=== PATIENT | male | born 1950 | race Caucasian/White ===

== ENCOUNTER → 2018-10-20 | Outpatient (CLI) | payer OTHER ==
[~2018-10-20] VITALS: Ht 180.3 cm; Wt 85.3 kg
[~2018-10-20] MED LIST: CATHETER FLUSH 10 ML SYR IV PRN; ONDANSETRON 4 MG/2 ML (SDV) Z0FRAN IVP ONE; ONDANSETRON 4 MG/2 ML (SDV) Z0FRAN ONE; REGADENOSON 0.4 MG/5 ML SYR (LEXISCAN) IV ONE
--- NOTE | 2018-10-20 22:21 | STRESS TEST ---
DATE OF SERVICE: 10/20/2018 RESTING AND POST REGADENOSON TECHNETIUM-99M TETROFOSMIN SPECT CT IMAGING ORDERING PHYSICIAN: Dr. Mitchell. CLINICAL DIAGNOSES: Chest discomfort, shortness of breath. Baseline images were carried out after injection of 10.66 mCi of technetium-99m Tetrofosmin. This was followed by 0.4 mg Regadenoson and 29 mCi of technetium-99m Tetrofosmin for stress imaging. The electrocardiogram showed sinus rhythm at the baseline. The electrocardiogram did not change significantly with the Regadenoson infusion. Review of images at rest and following stress does not indicate any significant perfusion defects consistent with significant myocardial ischemia or infarction. Gated images show normal global left ventricular systolic function and no regional wall motion. Left ventricular ejection fraction is calculated to be 66%. Left ventricular end diastolic volume is 35 mL. TID is absent (0.99). CONCLUSIONS: 1. No evidence of any significant myocardial ischemia or infarction on this study. 2. Normal regional wall motion. 3. Normal global left ventricular systolic function with a calculated ejection fraction of 66%. Job ID: [id number] DocumentID: [id number] Dictated Date: 10/20/2018 17:31:45 Business Assistant Date: 10/20/2018 21:49:43 Dictated By: HUMBERTO MITCHELL MD, MA, FACP, FACC,
== END ==
LOC: CARD 11:17
PROVIDERS: ATTEND Internal Medicine Cardiovascular Disease
DX: R07.89 Other chest pain (principal); R06.02 Shortness of breath; I10 Essential (primary) hypertension
CPT/HCPCS: 78452; 93017; 93306

== ENCOUNTER → 2019-04-06 | Outpatient (CLI) | payer OTHER ==
[2019-04-06 16:15] LABS: PROTHROMBIN TIME PATIENT 13.9 SEC (12.2-14.7)
== END ==
LOC: LAB 15:40
PROVIDERS: ATTEND Nurse Practitioner Family
DX: R06.02 Shortness of breath (principal); R91.8 Other nonspecific abnormal finding of lung field; R06.89 Other abnormalities of breathing; R05 Cough; R59.1 Generalized enlarged lymph nodes
CPT/HCPCS: 36415; 85610; 85730

== ENCOUNTER 2019-04-10 05:38 | Outpatient (CLI) | payer OTHER ==
[~2019-04-10] VITALS: Ht 180.3 cm; Wt 82.8 kg
[2019-04-10] MEDS ORDERED: NAPR500T8 PO (12:42)
[2019-04-10] MEDS ORDERED: AMLO10TA7 PO (12:42)
[2019-04-10] MEDS ORDERED: TRAM50TA2 PO (12:42)
[2019-04-10] MEDS ORDERED: LOSA100T57 PO (12:42)
[2019-04-10] MEDS ORDERED: TAMS0.4C98 PO (12:42)
[2019-04-10] MEDS ORDERED: RANI-515 PO (12:42)
[2019-04-10] MEDS ORDERED: LORA10TA7 PO (12:42)
== END 2019-04-10 12:43 | disposition home or self-care (01) ==
LOC: PREOP 05:38
PROVIDERS: ATTEND Internal Medicine Critical Care Medicine
DX: Z01.818 Encounter for other preprocedural examination (principal)

== ENCOUNTER 2019-04-15 06:50 | Day surgery (SDC) | payer OTHER ==
[2019-04-15] VITALS (8 sets, daily range): BP systolic 122–175; BP diastolic 69–114
[~2019-04-15 06:50] MED LIST changes: +AMLO10TA7 PO; -CATHETER FLUSH 10 ML SYR IV PRN; +LORA10TA7 PO; +LOSA100T57 PO; +NAPR500T8 PO; -ONDANSETRON 4 MG/2 ML (SDV) Z0FRAN IVP ONE; -ONDANSETRON 4 MG/2 ML (SDV) Z0FRAN ONE; +RANI-515 PO; -REGADENOSON 0.4 MG/5 ML SYR (LEXISCAN) IV ONE; +TAMS0.4C98 PO; +TRAM50TA2 PO
[2019-04-15] MEDS ORDERED: LIDOCAINE PF 2% 5 ML (XYLOCAINE) VIAL INJ ONE (06:51)
[2019-04-15] MEDS ORDERED: LIDOCAINE PF 1% 2 ML AMP IJ ONE (06:51)
[2019-04-15] MEDS ORDERED: LIDOCAINE PF 2% 5 ML (XYLOCAINE) VIAL ONE (06:56)
[2019-04-15] MEDS ORDERED: DEXAMETHASONE 10 MG/ML (DECADRON) 1 ML VIAL ONE (06:56)
[2019-04-15] MEDS ORDERED: fentaNYL INJECTION 100 MCG/2 ML AMP ONE (06:56)
[2019-04-15] MEDS ORDERED: SEVOFLURANE (ULTANE) 15 ML INHAL SOLN ONE (06:56)
[2019-04-15] MEDS ORDERED: ONDANSETRON 4 MG/2 ML (SDV) Z0FRAN ONE (06:56)
[2019-04-15] MEDS ORDERED: proPOfol 200 MG/20 ML (DIPRIVAN) VIAL IV ONE (06:56)
[2019-04-15] MEDS ORDERED: MIDAZOLAM 2 MG/2 ML (VERSED) VIAL ONE (06:57)
[2019-04-15] MEDS ORDERED: LACTATED RINGERS 1,000 ML IV ONE ×2 (06:57→08:22)
[2019-04-15] MEDS ORDERED: LACTATED RINGERS 1,000 ML IV PRN ×2 (06:58→07:00)
[2019-04-15] MEDS ORDERED: ROCURONIUM 10 MG/ML 5 ML SYRINGE IV ONE (07:04)
[2019-04-15] MEDS ORDERED: PHENYLEPHRINE 100 MCG/ML 10 ML (ANESTHESIA) SYR ONE (08:01)
[2019-04-15] MEDS ORDERED: GLYCOPYRROLATE 0.2 MG/ML (ROBINUL) 2 ML VIAL ONE (08:22)
[2019-04-15] MEDS ORDERED: NEOSTIGMINE 3 MG/3 ML VIAL ONE (08:22)
[2019-04-15] MEDS ORDERED: MEPERIDINE (DEMEROL) INJ 50 MG/ML IVP ONE (08:45)
[2019-04-15] MEDS ORDERED: morphine INJ 10 MG/ML 1ML (SYR OR VIAL) IVP ONE (08:45)
[2019-04-15] MEDS ORDERED: HYDROmorphone 2 MG/ML VIAL (DILAUDID) IV ONE (08:45)
[2019-04-15] MEDS ORDERED: ONDANSETRON 4 MG/2 ML (SDV) Z0FRAN IVP PRN (08:45)
--- NOTE | 2019-04-15 09:03 | Diagnostic Imaging Report ---
INDICATION: Post-bronchoscopy evaluation. Portable supine image of the chest is obtained. There is no previous study available at this time for comparison. FINDINGS: Overall heart size is at upper limits of normal. There is increased density in the right hilum which may be due to infiltrate or mass. There is blunting of right costophrenic sulcus. Endotracheal tube is in place with tip reaching the lower trachea. No pneumothorax is identified. IMPRESSION: Right hilar infiltrate and/or mass. Correlation with older studies or CT imaging would be useful. There is no evidence of pneumothorax or other acute complication from bronchoscopy. Dictated by: Dictated on workstation # [id number]
--- NOTE | 2019-04-15 09:15 | Anesthesia-General Post-Op ---
General Patient Condition Mental Status/LOC: Same as Preop Cardiovascular: Satisfactory Nausea/Vomiting: Absent Respiratory: Satisfactory Pain: Controlled Complications: Absent Post Op Complications Complications None Follow Up Care/Instructions Patient Instructions None needed. Anesthesia/Patient Condition Patient Condition Patient is doing well, no complaints, stable vital signs, no apparent adverse anesthesia problems. No complications reported per nursing. ROGER LOVE CRNA Apr 15, 2019 09:15 POS
--- NOTE | 2019-04-15 10:40 | Anesthesia-General Post-Op ---
General Patient Condition Mental Status/LOC: Same as Preop Cardiovascular: Satisfactory Nausea/Vomiting: Absent Respiratory: Satisfactory Pain: Controlled Complications: Absent Post Op Complications Complications None Follow Up Care/Instructions Patient Instructions None needed. Anesthesia/Patient Condition Patient Condition Patient is doing well, no complaints, stable vital signs, no apparent adverse anesthesia problems. No complications reported per nursing. YOSSI JOEL CRNA Apr 15, 2019 10:40 POS
--- NOTE | 2019-04-15 11:39 | Progress Note-Pre Operative ---
Pre-Operative Progress Note H&P Reviewed The H&P was reviewed, patient examined and no changes noted. Date Seen by Provider: Apr 15, 2019 Time Seen by Provider: 07:00 Date H&P Reviewed: Apr 15, 2019 Time H&P Reviewed: 07:00 Pre-Operative Diagnosis: lung mass JOYCE FREITAS DO Apr 15, 2019 11:39 POS
--- NOTE | 2019-04-15 11:45 | Pulmonary Procedures ---
Pulmonary Procedures Date of Procedure Date of Service: Apr 15, 2019 Bronch Bronchoscopy with EBUS with bx of station 7 and 10R lymph nodes. Bilateral wash was also obtained Preop DX: mediastinal lymphadenopathy with lung mass PostOP DX: same Complications: None Pt was sedated per anesthesia. Bronchoscopy was advanced through the ET tube and an anatomical undertaken down to the segmental bronchi bilaterally. No endobronchial lesions noted. EBUS was then advanced through ET tube and the mediastinum was US. Station 7 and 10R lymph nodes were sampled via needle bx un park US guidance. Pt tolerated procedure well. No complications noted. JOYCE FREITAS DO Apr 15, 2019 11:45 POS
== END 2019-04-15 10:35 | disposition home or self-care (01) ==
LOC: ENDO 06:50
PROVIDERS: ATTEND Internal Medicine Critical Care Medicine
DX: R59.1 Generalized enlarged lymph nodes (principal); R91.8 Other nonspecific abnormal finding of lung field; I10 Essential (primary) hypertension; M19.90 Unspecified osteoarthritis, unspecified site; J93.9 Pneumothorax, unspecified; K21.9 Gastro-esophageal reflux disease without esophagitis; Z88.0 Allergy status to penicillin; Z79.899 Other long term (current) drug therapy; Z80.9 Family history of malignant neoplasm, unspecified; Z83.3 Family history of diabetes mellitus; Z82.49 Family history of ischemic heart disease and other diseases of the circulatory system; Z90.49 Acquired absence of other specified parts of digestive tract; Z86.73 Personal history of transient ischemic attack (TIA), and cerebral infarction without residual deficits
CPT/HCPCS: 71045; 87015; 87070; 87101; 87116; 87205; 87206; 94640

== ENCOUNTER → 2019-04-29 | Outpatient (CLI) | payer OTHER ==
[~2019-04-29] MED LIST changes: +RT-ALBUTEROL SULF 2.5 MG/3 ML PRE-MIX VIAL INH ONE
== END ==
LOC: RAD 07:54
PROVIDERS: ATTEND Nurse Practitioner Family
DX: R06.02 Shortness of breath (principal); R91.8 Other nonspecific abnormal finding of lung field; R06.89 Other abnormalities of breathing; R05 Cough; R59.1 Generalized enlarged lymph nodes
CPT/HCPCS: 94060; 94726; 94729

== ENCOUNTER → 2019-05-05 | Outpatient (CLI) | payer OTHER ==
[~2019-05-05] MED LIST changes: -RANI-515 PO; +RANI-609 PO; -RT-ALBUTEROL SULF 2.5 MG/3 ML PRE-MIX VIAL INH ONE; -TAMS0.4C98 PO; +TMSL.4C PO; -TRAM50TA2 PO; +TRM50T PO
--- NOTE | 2019-05-05 14:12 | Diagnostic Imaging Report ---
INDICATION: Lymphadenopathy and cough. COMPARISON: No prior PET studies available for comparison. Comparison is made with recent chest radiograph from 04/15/2019. TECHNIQUE: Serum blood glucose level at the time of injection was 98 mg/dL. Patient was administered 13.5 mCi F-18 FDG intravenously in the left antecubital location and PET imaging was performed from the top of the skull to mid thighs. Noncontrast CT was also performed for attenuation correction and anatomic correlation. FINDINGS: No suspicious hypermetabolism within the brain is identified. Mild uptake within left supraclavicular lymph nodes is noted. Imaging through the chest does show bulky hypermetabolic bilateral axillary lymph nodes. SUV max is in the 4-5 range. There are some enlarged lymph nodes in the mediastinum as well however these do not demonstrate FDG avidity. No pulmonary parenchymal hypermetabolism is identified. Abdomen and pelvis demonstrates physiologic activity within the gastrointestinal and genitourinary tracts. There are some hypermetabolic lymph nodes in the central retroperitoneum as well as bilateral iliac and obturator regions. SUV max ranges from 3.5-4.5. There is hypermetabolic bilateral inguinal lymph nodes as well. IMPRESSION: Hypermetabolic lymphadenopathy bilateral axillary regions as well as central retroperitoneal, iliac, obturator and bilateral inguinal regions. There is mildly hypermetabolic lymph nodes in the cervical spine and supraclavicular regions as well. Features are suggestive of lymphoma. Dictated by: Dictated on workstation # [id number]
== END ==
LOC: RAD 11:00
PROVIDERS: ATTEND Nurse Practitioner Family
DX: J45.909 Unspecified asthma, uncomplicated (principal); R91.8 Other nonspecific abnormal finding of lung field; R59.1 Generalized enlarged lymph nodes

== ENCOUNTER → 2019-05-11 | Outpatient (CLI) | payer OTHER ==
[~2019-05-11] VITALS: Ht 180.3 cm; Wt 82.8 kg
[~2019-05-11] MED LIST changes: +LIDOCAINE 1% INJ 20 ML 20 ML VIAL INJ ONE
--- NOTE | 2019-05-11 10:50 | Diagnostic Imaging Report ---
INDICATION: Lymphadenopathy. TECHNIQUE AND FINDINGS: After explaining the risks, benefits, and alternatives of the procedure to the patient, written consent was obtained. The patient was placed on the table in the supine position. The patient's left axilla was prepped and draped utilizing maximal sterile barrier technique. Local anesthesia was obtained with 2% lidocaine. An 18-gauge Temno introducer needle was advanced into the largest node in the left axilla. Approximately six core biopsy specimens were obtained. Following the procedure, the needle was removed and adequate hemostasis was obtained. The patient tolerated the procedure well and left the Department in stable condition. IMPRESSION: Successful ultrasound-guided biopsy of a left axillary lymph node as described. Dictated by: Dictated on workstation # [id number]
== END ==
LOC: RAD 09:30
PROVIDERS: ATTEND Nurse Practitioner Family
DX: R59.1 Generalized enlarged lymph nodes (principal); R06.89 Other abnormalities of breathing; R91.8 Other nonspecific abnormal finding of lung field
CPT/HCPCS: 88184; 88185; 88305; 88341; 88342; 88360

== ENCOUNTER 2019-07-09 05:29 | Outpatient (CLI) | payer OTHER ==
[~2019-07-09] VITALS: Ht 70 cm; Wt 84.0 kg
[~2019-07-09 05:29] MED LIST changes: -LIDOCAINE 1% INJ 20 ML 20 ML VIAL INJ ONE
[2019-07-09] MEDS ORDERED: OXYC-471 PO (10:28)
[2019-07-09] MEDS ORDERED: FERR-84 PO (10:28)
[2019-07-09] MEDS ORDERED: ALLO300T2 PO (10:28)
[2019-07-09] MEDS ORDERED: DOCU100C37 PO (10:28)
[2019-07-09] MEDS ORDERED: CYCL10TA9 PO (10:28)
[2019-07-09] MEDS ORDERED: SUMA50TA2 PO (10:28)
[2019-07-09] MEDS ORDERED: RT-ALBUINH IH (10:28)
== END 2019-07-09 10:36 | disposition home or self-care (01) ==
LOC: PREOP 05:29
PROVIDERS: ATTEND Surgery
DX: Z01.818 Encounter for other preprocedural examination (principal)

== ENCOUNTER 2019-07-15 06:53 | Observation (INO) | payer MEDICARE, OTHER ==
[2019-07-15] VITALS (22 sets, daily range): BP systolic 83–165; BP diastolic 45–135
[~2019-07-15] VITALS: Ht 177 cm; Wt 86.6 kg
[~2019-07-15 06:53] MED LIST changes: +ALLO300T2 PO; +CYCL10TA9 PO; +DOCU100C37 PO; +FERR-84 PO; +OXYC-471 PO; +RT-ALBUINH IH; +SUMA50TA2 PO
[2019-07-15] MEDS ORDERED: BUP/EPI 0.5% 1:200,000 (SENSORCAINE) 30 ML VIAL ONE (07:19)
[2019-07-15] MEDS ORDERED: 0.9% SODIUM CHLORIDE PF INJ 20 ML VIAL ONE (07:20)
[2019-07-15] MEDS ORDERED: HEParin (CENTRAL IV FLUSH) 500 UNIT/5 ML SYR ONE (07:20)
[2019-07-15] MEDS ORDERED: MIDAZOLAM 2 MG/2 ML (VERSED) VIAL ONE ×2 (07:25→08:35)
[2019-07-15] MEDS ORDERED: LACTATED RINGERS 1,000 ML IV PRN (07:25)
[2019-07-15] MEDS ORDERED: CLINDAMYCIN 600 MG/50 ML IVPB 50 ML IV ONE (07:30)
[2019-07-15] MEDS ORDERED: CATHETER FLUSH 10 ML SYR IV PRN (07:45)
--- NOTE | 2019-07-15 08:13 | Progress Note-Pre Operative ---
Pre-Operative Progress Note H&P Reviewed The H&P was reviewed, patient examined and no changes noted. Time Seen by Provider: 08:09 Date H&P Reviewed: Jul 15, 2019 Time H&P Reviewed: 08:10 Pre-Operative Diagnosis: Venous Insufficiency DYLAN ANDERSON DO Jul 15, 2019 08:13
[2019-07-15] MEDS ORDERED: fentaNYL INJECTION 100 MCG/2 ML AMP ONE (08:49)
--- NOTE | 2019-07-15 08:49 | Progress Note-Post Operative ---
Post-Operative Progess Note Surgeon (s)/Furniture Servicer (s) Surgeon DYLAN ANDERSON DO Furniture Servicer: SHANDA Abad Pre-Operative Diagnosis Venous Insufficiency Post-Operative Diagnosis Venous insuffiency Lymphoma Procedure & Operative Findings Date of Procedure 07/15/19 Procedure Performed/Findings Jasiel-cath placement R SC vein, R ACW Anesthesia Type IV sedation by MATERIAL CONTROL SUPERVISOR Estimated Blood Loss Estimated blood loss (mL): scant Specimens/Packing Specimens Removed none DYLAN ANDERSON DO Jul 15, 2019 08:49
--- NOTE | 2019-07-15 08:50 | Discharge Inst-Surgical ---
Discharge Inst-Surgical Depart Medication/Instructions New, Converted or Re-Newed RX: Other (pt has home pain meds) Activity Activity as Tolerated: Yes Activity Instructions: Avoid Stress to Incision Driving Instructions: You May Drive Diet Discharge Diet: No Restrictions Diet After 24 Hours: Clear Liquid if Nauseous If Any Problems/Questions/Issu: Contact Your Physician, Go to Emergency Room Skin/Wound Care Infection Signs and Symptoms: Increased Redness, Foul Odor of Wound, Increased Drainage, Skin Itchy or Has a Rash, Increased Swelling, Temperature Above 101 F Bathing Instructions: Shower Stitches/[place]/Dermabond Dis: Dermabond Ice Pack: Ice On and Off Site DYLAN ANDERSON DO Jul 15, 2019 08:50
[2019-07-15] MEDS ORDERED: PHENYLEPHRINE 100 MCG/ML 10 ML (ANESTHESIA) SYR ONE (09:06)
[2019-07-15] MEDS ORDERED: PROPOFOL INJECTION 50 ML IV ONE (09:07)
[2019-07-15] MEDS ORDERED: GLYCOPYRROLATE 0.2 MG/ML (ROBINUL) 2 ML VIAL ONE (09:08)
[2019-07-15] MEDS ORDERED: FLUMAZENIL (ROMAZICON) 0.1 MG/ML 5 ML VIAL ONE (09:08)
[2019-07-15] MEDS ORDERED: NS IV 1000 ML 1,000 ML ONE (09:12)
--- NOTE | 2019-07-15 09:36 | Diagnostic Imaging Report ---
INDICATION: Intraoperative fluoroscopy. FINDINGS: Fluoroscopy was provided for Dr. Loco during PowerPort insertion. Two images were obtained. Six seconds of fluoroscopy was utilized. The tip of the PowerPort is in the superior vena cava. IMPRESSION: Intraoperative fluoroscopy as described. Dictated by: Dictated on workstation # [id number]
[2019-07-15] MEDS ORDERED: IOHEXOL 350 MG/ML 100 ML (OMNIPAQUE 350) VIAL IV ONE (09:45)
[2019-07-15] MEDS ORDERED: NS 100 ML (IVPB) BAG IV ONE (09:45)
[2019-07-15] MEDS ORDERED: HOLD METFORMIN - RECEIVED CONTRAST 20 ML VIAL IV SCH (09:45)
--- NOTE | 2019-07-15 10:05 | NUR ---
Referral to provide emotional support to pt's , Becky, who said her had an allergic reaction to treatment. States he was recently diagnosed with Cancer. Demonstrates positive coping, no request for contacts. Spiritual affiliation is [employer].
--- NOTE | 2019-07-15 10:37 | Diagnostic Imaging Report ---
PROCEDURE: CT angiography of the chest with contrast. TECHNIQUE: Multiple contiguous axial images were obtained through the chest after uneventful bolus administration of intravenous contrast. 3D reconstructed CTA MIP acquisitions were also performed. Auto Exposure Controls were utilized during the CT exam to meet ALARA standards for radiation dose reduction. INDICATION: Chest pain, shortness of breath and hypertension with tachycardia. FINDINGS: Examination is technically limited due to respiratory motion. No definitive filling defects are seen within the pulmonary arteries to suggest pulmonary embolism. Thoracic aorta is normal in caliber without evidence of dissection. There are some minimal coronary artery calcifications. There are some patchy groundglass infiltrates in the lung bases which are nonspecific. There is no pneumothorax. There is pathologically enlarged adenopathy in the left axilla. The largest lymph node measures up to 4 cm. Additionally there is some mildly enlarged lymphadenopathy in the right axilla. There also appears to be some enlarged adenopathy in the left supraclavicular region. There appears to have been recent Gwzrpx-t-Ivka catheter placement as there is some subcutaneous gas in the tissues of the right chest surrounding the port. There is a small hiatal hernia The visualized intra-abdominal structures are grossly unremarkable, apart from a right renal cyst. There are degenerative changes in the spine. IMPRESSION: Technically limited exam due to respiratory motion. It is difficult to exclude small peripheral subsegmental filling defects, however no central or large filling defects are appreciated to suggest pulmonary embolism. There is no evidence of dissection. Pathologically enlarged adenopathy in the axilla bilaterally as well as in the left supraclavicular region. This is nonspecific however suspect for lymphoma. Patchy groundglass infiltrates in lung bases which are nonspecific however may reflect some mild venous congestion Coronary artery calcifications. Small hiatal hernia. Right renal cyst. Dictated by: Dictated on workstation # [id number]
[2019-07-15] MEDS: LACTATED RINGERS 1,000 ML IV SCH ×2 (10:45→21:44)
[2019-07-15 11:06] LABS: ABG OXYGEN SATURATION 95 % (94-100); ABG PCO2 39 MMHG (35-45); ABG PH 7.37 (7.37-7.43); ABG PO2 71 MMHG (79-93); ABG TCO2 23.6 MMOL/L (21.0-31.0)
[2019-07-15 11:07] LABS: ALLENS TEST POSITIVE; INSPIRED O2 4 L; PATIENT TEMP 36.8; VENTILATOR NO
[2019-07-15 11:20] LABS: BASOPHILS # (AUTO) 0.1 10^3/uL (0.0-0.1); BASOPHILS % (AUTO) 0 % (0-10); EOSINOPHILS # (AUTO) 0.1 10^3/uL (0.0-0.3); EOSINOPHILS % (AUTO) 1 % (0-10); HEMATOCRIT 38 % (40-54); HEMOGLOBIN 12.3 G/DL (13.3-17.7); LYMPHOCYTES # (AUTO) 0.4 X 10^3 (1.0-4.0); LYMPHOCYTES % (AUTO) 3 % (12-44); MEAN CORPUSCULAR HGB CONC 32 G/DL (32-36); MEAN CORPUSCULAR VOLUME 80 FL (80-99); MEAN PLATELET VOLUME 10.9 FL (7.4-10.4); MONOCYTES # (AUTO) 0.7 X 10^3 (0.0-1.0); MONOCYTES % (AUTO) 5 % (0-12); NEUTROPHILS # (AUTO) 14.6 X 10^3 (1.8-7.8); NEUTROPHILS % (AUTO) 92 % (42-75); PLATELET COUNT 293 10^3/uL (130-400); RED CELL DISTRIBUTION WIDTH 19.1 % (10.0-14.5); WHITE BLOOD COUNT 15.9 10^3/uL (4.3-11.0)
[2019-07-15 11:22] LABS: MEAN CORPUSCULAR HEMOGLOBIN 25 PG (25-34)
[2019-07-15 11:44] LABS: ALANINE AMINOTRANSFERASE 11 U/L (0-55); ALBUMIN 3.6 GM/DL (3.2-4.5); ALKALINE PHOSPHATASE 65 U/L (40-136); BILIRUBIN,TOTAL 0.3 MG/DL (0.1-1.0); BUN/CREATININE RATIO 19; CALCIUM 9.5 MG/DL (8.5-10.1); CARBON DIOXIDE 23 MMOL/L (21-32); CHLORIDE 108 MMOL/L (98-107); CREATININE SERUM 1.01 MG/DL (0.60-1.30); GFR ESTIMATED > 60; GLUCOSE 97 MG/DL (70-105); MAGNESIUM 1.8 MG/DL (1.6-2.4); POTASSIUM 4.2 MMOL/L (3.6-5.0); SODIUM 138 MMOL/L (135-145); TOTAL PROTEIN 6.2 GM/DL (6.4-8.2)
[2019-07-15 11:48] LABS: ACANTHOCYTES SLIGHT; ANISOCYTOSIS SLIGHT; BAND NEUTROPHILS 11 %; BASOPHILS % (MANUAL) 0 %; EOSINOPHILS % (MANUAL) 0 %; HOWELL-JOLLY BODIES SLIGHT; LYMPHOCYTES % (MANUAL) 1 %; MICROCYTOSIS SLIGHT; MONOCYTES % (MANUAL) 5 %; NEUTROPHILS % (MANUAL) 83 %; TARGET CELLS SLIGHT
[2019-07-15] MEDS ORDERED: LACTATED RINGERS 1,000 ML IV ONE (14:15)
--- NOTE | 2019-07-15 14:29 | Pulmonary Consultation ---
History of Present Illness History of Present Illness Date Seen by Provider: Jul 15, 2019 Time Seen by Provider: 14:24 Date of Admission Allergies and Home Medications Allergies Coded Allergies: Penicillins (Verified Allergy, Unknown, 07/09/19) niacin (Verified Allergy, Unknown, 07/09/19) simvastatin (Verified Allergy, Unknown, 07/09/19) Home Medications Albuterol Sulfate 1 Puff Puff, 2 PUFF IH Q4H PRN for SHORTNESS OF BREATH, (Reported) 1 PUFF = 90 MCG Allopurinol 300 Mg Tablet, 300 MG PO DAILY, (Reported) Amlodipine Besylate 10 Mg Tablet, 10 MG PO DAILY, (Reported) Cyclobenzaprine HCl 10 Mg Tablet, 10 MG PO PRN, (Reported) Docusate Sodium 100 Mg Capsule, 100 MG PO DAILY, (Reported) Ferrous Sulfate 325 Mg Tablet, 325 MG PO DAILY, (Reported) Loratadine 10 Mg Tablet, 10 MG PO DAILY, (Reported) Losartan Potassium 100 Mg Tablet, 100 MG PO DAILY, (Reported) Oxycodone HCl/Acetaminophen 1 Each Tablet, 1 EACH PO Q4H PRN for PAIN-SEVERE, (R eported) Ranitidine HCl 150 Mg Tablet, 150 MG PO DAILY, (Reported) Sumatriptan Succinate 50 Mg Tablet, 50 MG PO PRN, (Reported) Tamsulosin HCl 0.4 Mg Cap, 0.4 MG PO DAILY, (Reported) Tramadol HCl 50 Mg Tablet, 50 MG PO Q6H, (Reported) Past Pemackf-Vsxdhg-Hwujsq Hx Patient Social History Alcohol Use: Denies Use Recreational Drug Use: No Smoking Status: Never a Smoker 2nd Hand Smoke Exposure: No Recent Foreign Travel: No Contact w/Someone Who Travel: No Recent Infectious Disease Expo: No Recent Hopitalizations: No Immunizations Up To Date Date of Pneumonia Vaccine: Jul 08, 2017 Date of Influenza Vaccine: Apr 03, 2019 Seasonal Allergies Seasonal Allergies: Yes Past Medical History Surgeries: Yes (spleenectomy, back sx, hernia repair, blood clot on brain, BACK) Tracheostomy Respiratory: Yes (SOB) Currently Using CPAP: No Currently Using BIPAP: No Cardiac: Yes Hypertension Neurological: Yes (blood clot removed from brain) Headaches /Migraines Sexually Transmitted Disease: No HIV/AIDS: No Genitourinary: Yes Benign Prostatic Hyperpl, Prostate Problems Gastrointestinal: Yes Gastroesophageal Reflux, Chronic Constipation Musculoskeletal: Yes Arthritis, Chronic Back Pain, Fractures Endocrine: No HEENT: Yes (GLASSES) Cataract Loss of Vision: Denies Hearing Impairment: Denies Cancer: Yes Lymphoma Did You Recieve Any Treatments: Yes What Type of Treatment Did You: Chemotherapy Psychosocial: No Integumentary: No Blood Disorders: No Adverse Reaction/Blood Tranf: No (HAS HAD BLOOD WITH NO REACTION) Sepsis Event Evaluation Height, Weight, BMI Height: 5'11.00" Weight: 188lbs. 0.0oz. 85.996834fn; 0.00 BMI Method: Exam Exam Vital Signs Date Time Temp Pulse Resp B/P (MAP) Pulse Ox O2 Delivery O2 Flow Rate FiO2 07/15/19 14:13 94 07/15/19 12:48 105 07/15/19 12:00 80 12 153/135 (141) 100 OxyMask 4.00 07/15/19 11:14 OxyMask 6.00 07/15/19 11:00 84 36 118/80 (93) 100 OxyMask 4.00 07/15/19 10:43 OxyMask 4.00 07/15/19 10:00 109 40 113/86 (95) 97 OxyMask 6.00 07/15/19 09:45 OxyMask 6 07/15/19 09:40 OxyMask 6 07/15/19 09:40 36.4 22 151/86 (107) 99 OxyMask 6 07/15/19 09:35 22 147/91 (109) 97 OxyMask 6 07/15/19 09:30 22 86/72 (77) 100 OxyMask 6 07/15/19 09:25 OxyMask 6 07/15/19 09:20 24 84/59 (67) 99 OxyMask 6 07/15/19 09:10 22 89/53 (65) 98 OxyMask 6 07/15/19 09:10 OxyMask 6 07/15/19 09:00 22 90/45 (60) 98 OxyMask 6 07/15/19 08:56 36.2 22 83/55 (64) 98 OxyMask 6 07/15/19 08:56 OxyMask 6 07/15/19 07:00 36.2 108 18 153/106 (122) 98 Room Air Height & Weight Height: 5'11.00" Weight: 188lbs. 0.0oz. 85.077442nj; 0.00 BMI Method: Results Lab Laboratory Tests 07/15/19 11:10 Assessment/Plan Assessment/Plan Dyspnea -Monitor -IS -Duonebs Acute CP- probably secondary to surgery -Cardiology following -Troponin is negative -EKG S/p mediport placement Metabolic lactic acidosis and leukocytosis - probably secondary to surgery - doubt sepsis . JOYCE FREITAS DO Jul 15, 2019 14:29
[2019-07-15] MEDS ORDERED: LACTATED RINGERS 1,000 ML IV SCH (14:30)
[2019-07-15] MEDS ORDERED: ONDANSETRON 4 MG/2 ML (SDV) Z0FRAN IVP PRN (14:45)
[2019-07-15] MEDS ORDERED: hydrALAZINE (APESOLINE) 20 MG/ML VIAL IV PRN (14:45)
--- NOTE | 2019-07-15 14:57 | OPERATIVE REPORT ---
DATE OF SERVICE: PREOPERATIVE DIAGNOSES: Venous insufficiency and lymphoma. POSTOPERATIVE DIAGNOSES: Venous insufficiency and lymphoma. PROCEDURE: Port-A-Cath insertion. SURGEON: Ralph Loco DO. SPEEDBOAT OPERATOR: LG Abad. ANESTHESIA: IV sedation by ROUGH PLANER TENDER. SPECIMENS: None. BLOOD LOSS: Scant. FLUIDS: Per anesthesia. POSTOPERATIVE CONDITION: Stable. INDICATION FOR PROCEDURE: The patient is a 68-year-old male who unfortunately recently diagnosed with lymphoma, has some venous insufficiency, will need long-term access for chemotherapy, needs a Port-A-Cath. FINDINGS: The patient had a Port-A-Cath placed right anterior chest wall, right subclavian vein. PROCEDURE NOTE: After informed consent was obtained, the patient was brought to the operating room, placed on the operating table in supine position, sterilely prepped and draped in normal fashion. He was then placed slightly Trendelenburg. Local lidocaine was used to infiltrate the anterior chest wall towards the clavicle and then along the chest wall for the pocket and then using an 18 gauge fine needle advanced with negative inspiration, cannulated the subclavian vein on the first attempt. Good flush of blood, removed the syringe, placed a guidewire down the needle using Seldinger technique, checked with fluoroscopy, it was in good position, then made a stab incision along the guidewire and then made an incision in the right anterior chest wall with #11 blade, carried down through the skin and subcutaneous tissue, deepened down to subcutaneous tissue with Bovie electrocautery down to fascia of the pectoralis major muscle, then bluntly created a pocket as well as used Bovie electrocautery to control bleeding. Once this was done, then tunneled the catheter from the stab incision into the pocket and then over the guidewire placed a dilator using Seldinger technique, it went in easily, checked the position, checked for fluoroscopy, the position was good. Removed the inner portion of the dilator sheath as well as the guidewire and then placed the catheter down the dilator sheath using Seldinger technique, it went in easily and then removed the outer portion of the dilator sheath. Checked with fluoroscopy, it was in good position. At this point, then removed the inner wire and then attached the catheter to the port and then attached the locking mechanism, accessed the port with Reyez needle, good flush of blood and then flushed easily with saline, then accessed and then flushed with 2 mL of heparin flush. This was then placed in the pocket, sutured in place with 3-0 Prolene on the right side and then checked with fluoroscopy, it was in good position. No kinks at this point then closed the subcutaneous tissue with 3-0 Vicryl 2 interrupted sutures, then closed the skin with 4-0 undyed Monocryl 3 interrupted subcuticular stitches. Area was cleaned and dried. Dermabond placed as well as a Band-Aid. The patient tolerated the procedure. Sponge, instrument and needle count correct at the end of the case. Job ID: [id number] DocumentID: [id number] Dictated Date: 07/15/2019 08:47:06 Painter Set Date: 07/15/2019 14:56:41 Dictated By: RALPH LOCO DO
[2019-07-15] MEDS: morphine INJ 4 MG/ML 1 ML (VIAL/SYRINGE) IVP PRN ×2 (14:58→20:09)
[2019-07-15] MEDS ORDERED: RT-ALBUTEROL/IPRATROPIUM 3 ML (DUONEB) VIAL INH SCH (15:00)
[2019-07-15] MEDS ORDERED: RT-ALBUTEROL/IPRATROPIUM 3 ML (DUONEB) VIAL INH PRN (18:30)
[2019-07-15] MEDS: RT-ALBUTEROL/IPRATROPIUM 3 ML (DUONEB) VIAL INH SCH ×2 (18:37→22:05)
--- NOTE | 2019-07-15 19:00 | NUR ---
PT CALLED THIS RN WITH C/O SOA INCREASING, UPON ASSESSMENT PT TIGHT WITH WHEEZES. OXYMASK APPLIED FOR COMFORT, SATS ABOVE 90. E-ICU NOTIFIED FOR PRN TREATMENTS. PT HAS NOT VOIDED SINCE ARRIVAL ON THE UNIT. BLADDER SCAN SHOWS 900ML OF URINE. KILLIAN PLACED WITHOUT DIFFICULTIES WITH COPIOUS AMOUNT OF CLEAR YELLOW URINE. SPECIMEN SENT TO LAB. RT IN ROOM FOR PRN TREATMENT.
[2019-07-15 19:08] LABS: BILIRUBIN,URINE NEGATIVE (NEGATIVE); CLARITY,URINE CLEAR; COLOR,URINE YELLOW; GLUCOSE, URINE (UA) NEGATIVE (NEGATIVE); KETONES,URINE NEGATIVE (NEGATIVE); LEUKOCYTE ESTERASE ,URINE NEGATIVE (NEGATIVE); NITRITE,URINE NEGATIVE (NEGATIVE); PROTEIN,URINE NEGATIVE (NEGATIVE)
[2019-07-15 19:25] LABS: BACTERIA,URINE NEGATIVE /HPF; RENAL EPITHELIAL CELLS,URINE 0-2 /HPF; SQUAMOUS EPITHELIAL CELL,UR RARE /HPF
[2019-07-15 19:26] LABS: HYALINE CASTS, URINE RARE /LPF
[2019-07-15] MEDS: ACETAMINOPHEN 325 MG TABLET PO PRN (21:01)
[2019-07-15] MEDS: CALCIUM CARBONATE 500 MG (TUMS) TAB.CHEW PO PRN (23:31)
[2019-07-16] VITALS (23 sets, daily range): BP systolic 102–174; BP diastolic 68–104
[2019-07-16] MEDS: LACTATED RINGERS 1,000 ML IV SCH ×3 (00:43→13:01)
[2019-07-16] MEDS: RT-ALBUTEROL/IPRATROPIUM 3 ML (DUONEB) VIAL INH SCH ×6 (02:19→20:43)
[2019-07-16] MEDS: morphine INJ 4 MG/ML 1 ML (VIAL/SYRINGE) IVP PRN (03:09)
[2019-07-16 03:42] LABS: BASOPHILS # (AUTO) 0.1 10^3/uL (0.0-0.1); BASOPHILS % (AUTO) 0 % (0-10); EOSINOPHILS # (AUTO) 0.4 10^3/uL (0.0-0.3); EOSINOPHILS % (AUTO) 2 % (0-10); HEMATOCRIT 34 % (40-54); LYMPHOCYTES # (AUTO) 1.3 X 10^3 (1.0-4.0); LYMPHOCYTES % (AUTO) 6 % (12-44); MEAN CORPUSCULAR HEMOGLOBIN 26 PG (25-34); MEAN CORPUSCULAR HGB CONC 33 G/DL (32-36); MEAN CORPUSCULAR VOLUME 79 FL (80-99); MEAN PLATELET VOLUME 11.1 FL (7.4-10.4); MONOCYTES # (AUTO) 2.3 X 10^3 (0.0-1.0); MONOCYTES % (AUTO) 10 % (0-12); NEUTROPHILS # (AUTO) 19.5 X 10^3 (1.8-7.8); NEUTROPHILS % (AUTO) 83 % (42-75); PLATELET COUNT 267 10^3/uL (130-400); RED CELL DISTRIBUTION WIDTH 18.4 % (10.0-14.5); WHITE BLOOD COUNT 23.5 10^3/uL (4.3-11.0)
[2019-07-16 04:04] LABS: BUN/CREATININE RATIO 24; CARBON DIOXIDE 22 MMOL/L (21-32); CHLORIDE 106 MMOL/L (98-107); CREATININE SERUM 0.83 MG/DL (0.60-1.30); GFR ESTIMATED > 60; GLUCOSE 118 MG/DL (70-105); MAGNESIUM 1.7 MG/DL (1.6-2.4); PHOSPHORUS 2.7 MG/DL (2.3-4.7); POTASSIUM 3.3 MMOL/L (3.6-5.0); SODIUM 138 MMOL/L (135-145)
[2019-07-16] MEDS ORDERED: PHARMACY TO DOSE IV SCH (04:15)
--- NOTE | 2019-07-16 04:15 | Pulmonary Progress Note ---
Subjective Time Seen by a Provider: 04:08 Subjective/Events-last exam PT states CP is better. Sepsis Event Evaluation Height, Weight, BMI Height: 5'11.00" Weight: 188lbs. 0.0oz. 85.621159tu; 0.00 BMI Method: Focused Exam Lactate Level 07/15/19 11:10: Lactic Acid Level 2.16*H 07/15/19 13:17: Lactic Acid Level 2.75*H Exam Exam Vital Signs Date Time Temp Pulse Resp B/P (MAP) Pulse Ox O2 Delivery O2 Flow Rate FiO2 07/16/19 03:15 Nasal Cannula 2.00 07/16/19 03:15 37.5 07/16/19 02:19 95 High Flow N/C 2.00 07/16/19 01:00 94 21 158/96 (116) 94 High Flow N/C 2.00 07/16/19 00:00 98 14 148/79 (102) 96 High Flow N/C 2.00 07/15/19 23:35 Nasal Cannula 2.00 07/15/19 23:34 37.0 07/15/19 23:00 103 25 150/81 (104) 95 High Flow N/C 2.00 07/15/19 22:30 High Flow N/C 2.00 07/15/19 22:05 96 High Flow N/C 3.00 07/15/19 22:00 96 23 152/88 (109) 97 High Flow N/C 3.00 07/15/19 21:31 37.9 07/15/19 21:01 36.8 07/15/19 21:00 100 27 157/88 (111) 95 High Flow N/C 3.00 07/15/19 20:00 100 18 148/84 (105) 97 High Flow N/C 3.00 07/15/19 20:00 Room Air 07/15/19 19:13 38.2 102 24 154/85 (108) 97 07/15/19 19:00 111 07/15/19 18:37 99 OxyMask 6.00 07/15/19 18:30 High Flow N/C 3.00 07/15/19 18:00 101 30 129/110 (116) 94 Room Air 07/15/19 17:00 107 33 165/105 (125) 96 Room Air 07/15/19 16:00 122 20 157/88 (111) 93 Room Air 07/15/19 16:00 Room Air 07/15/19 15:36 93 Room Air 07/15/19 15:00 104 39 148/83 (104) 92 Room Air 07/15/19 14:38 Room Air 07/15/19 14:13 94 07/15/19 14:00 98 28 164/85 (111) 94 OxyMask 4.00 07/15/19 13:00 110 26 142/85 (104) 98 OxyMask 4.00 07/15/19 12:48 105 07/15/19 12:00 80 12 153/135 (141) 100 OxyMask 4.00 07/15/19 12:00 OxyMask 2.00 07/15/19 11:14 OxyMask 6.00 07/15/19 11:00 84 36 118/80 (93) 100 OxyMask 4.00 07/15/19 10:43 OxyMask 4.00 07/15/19 10:00 109 40 113/86 (95) 97 OxyMask 6.00 07/15/19 09:45 OxyMask 6 07/15/19 09:40 OxyMask 6 07/15/19 09:40 36.4 22 151/86 (107) 99 OxyMask 6 07/15/19 09:35 22 147/91 (109) 97 OxyMask 6 07/15/19 09:30 22 86/72 (77) 100 OxyMask 6 07/15/19 09:25 OxyMask 6 07/15/19 09:20 24 84/59 (67) 99 OxyMask 6 07/15/19 09:10 22 89/53 (65) 98 OxyMask 6 07/15/19 09:10 OxyMask 6 07/15/19 09:00 22 90/45 (60) 98 OxyMask 6 07/15/19 08:56 36.2 22 83/55 (64) 98 OxyMask 6 07/15/19 08:56 OxyMask 6 07/15/19 07:00 36.2 108 18 153/106 (122) 98 Room Air I & O 07/16/19 07:00 Intake Total 2400 ml Output Total 1050 ml Balance 1350 ml Height & Weight Height: 5'11.00" Weight: 188lbs. 0.0oz. 85.017903ax; 0.00 BMI Method: General Appearance: No Apparent Distress, WD/WN, Anxious HEENT: PERRL/EOMI, TMs Normal Neck: Full Range of Motion, Normal Inspection Respiratory: No Accessory Muscle Use, No Respiratory Distress, Decreased Breath Sounds Cardiovascular: Regular Rate, Rhythm Capillary Refill: Less Than 3 Seconds Gastrointestinal: normal bowel sounds, non tender, soft Extremity: Normal Capillary Refill, Normal Inspection, No Pedal Edema Neurologic/Psychiatric: Alert, Oriented x3 Skin: Normal Color, Warm/Dry Lymphatic: No Adenopathy Results Lab Laboratory Tests 07/15/19 11:10 07/16/19 03:25 Assessment/Plan Assessment/Plan Worsening leukocytosis and fever TM 38.2 -Diego cultures pending -Start cefepime and Vanco for now -Check MRSA and influenza swab Dyspnea -Monitor -IS -Duonebs Acute CP- probably secondary to surgery -Cardiology following -Troponin is negative -EKG S/p mediport placement Metabolic lactic acidosis and leukocytosis - probably secondary to surgery - doubt sepsis . JOYCE FREITAS DO Jul 16, 2019 04:15
[2019-07-16] MEDS: POTASSIUM CL 10MEQ/50ML IVPB 50 ML IV SCH ×5 (04:21→08:06)
[2019-07-16] MEDS: MAGNESIUM 1 GM/100 ML IVPB 100 ML IV SCH ×2 (04:21→05:07)
[2019-07-16] MEDS ORDERED: VANCOMYCIN 1,750 MG/NS 500 ML IVPB IV ONE ×2 (05:45)
[2019-07-16] MEDS: CEFEPIME INJECTION 1,000 MG in WATER (STERILE) FOR INJECTION 10 ML IV SCH ×3 (05:46→17:38)
[2019-07-16] MEDS: ACETAMINOPHEN 325 MG TABLET PO PRN (05:47)
--- NOTE | 2019-07-16 08:30 | Consultation-Cardiology ---
HPI-Cardiology Cardiology Consultation: Date of Consultation 07/16/19 Time Seen by a Provider: 08:30 Date of Admission 07-15-2019 Attending Physician Dylan Anderson DO Admitting Physician Lawanda,Local Physician Consulting Physician Amparo Mitchell MD HPI: Chief Complaint: Chest pain Mr. Vale is a 68 year old male who underwent port placement to the right chest in preparation for chemo tx d/t lymphoma. He states post port placement he developed lower chest, epigastric pressure to sharp stabbing pain which comes and goes. He reports activity or emotional stress do not change the discomfort. He reports he has had frequent abd bloating for which he has been taking TUMS at least twice a day at home. He reports he feels his abd is bloated and that he needs to belch. He reports a feeling of fast heartbeat at times which lasts for a few minutes. He reports chronic SOB which has been somewhat worse. He reports occ cough of thick yellow to white sputum. He reports he had a fever last night. He denies any chills, n/v/d. He reports occ lower ext swelling. He reports chronic back pain which is unchanged. Review of Systems-Cardiology Review of Systems Constitutional: No chills; fever Eyes: No vision change Ears/Nose/Throat: No epistaxis, No recent hearing loss Respiratory: As described under HPI Cardiovascular: As described under HPI Gastrointestinal: As described under HPI Genitourinary: No dysuria, No hematuria Musculoskeletal: As describe under HPI Skin: No rash on exposed areas, No ulcerations on exposed areas Psychiatric/Neurological: No anxiety, No depression, No seizure, No focal weakness, No syncope Hematologic: No bleeding abnormalities [id number]-[id number] Hx Patient Social History Alcohol Use: Denies Use Recreational Drug Use: No Smoking Status: Never a Smoker 2nd Hand Smoke Exposure: No Recent Foreign Travel: No Recent Infectious Disease Expo: No Immunizations Up To Date Date of Pneumonia Vaccine: Jul 08, 2017 Date of Influenza Vaccine: Apr 03, 2019 Past Medical History PMH As described under Assessment. Family Medical History Family Medical History: Father had HTN. Mother had cancer and DM. Sister has DM. No reported family h/o CAD. Allergies and Home Medications Allergies Coded Allergies: Penicillins (Verified Allergy, Unknown, 07/09/19) niacin (Verified Allergy, Unknown, 07/09/19) simvastatin (Verified Allergy, Unknown, 07/09/19) Home Medications Albuterol Sulfate 1 Puff Puff, 2 PUFF IH Q4H PRN for SHORTNESS OF BREATH, (Reported) 1 PUFF = 90 MCG Allopurinol 300 Mg Tablet, 300 MG PO DAILY, (Reported) Amlodipine Besylate 10 Mg Tablet, 10 MG PO DAILY, (Reported) Cyclobenzaprine HCl 10 Mg Tablet, 10 MG PO PRN, (Reported) Docusate Sodium 100 Mg Capsule, 100 MG PO DAILY, (Reported) Ferrous Sulfate 325 Mg Tablet, 325 MG PO DAILY, (Reported) Loratadine 10 Mg Tablet, 10 MG PO DAILY, (Reported) Losartan Potassium 100 Mg Tablet, 100 MG PO DAILY, (Reported) Oxycodone HCl/Acetaminophen 1 Each Tablet, 1 EACH PO Q4H PRN for PAIN-SEVERE, (Reported) Ranitidine HCl 150 Mg Tablet, 150 MG PO DAILY, (Reported) Sumatriptan Succinate 50 Mg Tablet, 50 MG PO PRN, (Reported) Tamsulosin HCl 0.4 Mg Cap, 0.4 MG PO DAILY, (Reported) Tramadol HCl 50 Mg Tablet, 50 MG PO Q6H, (Reported) Patient Home Medication List Home Medication List Reviewed: Yes Physical Exam-Cardiology Physical Exam Vital Signs/I&O 07/15/19 07/15/19 07/15/19 07/15/19 21:31 22:00 22:05 22:30 Temp 37.9 Pulse 96 Resp 23 B/P (MAP) 152/88 (109) Pulse Ox 97 96 O2 Delivery High Flow N/C High Flow N/C High Flow N/C O2 Flow Rate 3.00 3.00 2.00 07/15/19 07/15/19 07/15/19 07/16/19 23:00 23:34 23:35 00:00 Temp 37.0 Pulse 103 98 Resp 25 14 B/P (MAP) 150/81 (104) 148/79 (102) Pulse Ox 95 96 O2 Delivery High Flow N/C Nasal Cannula High Flow N/C O2 Flow Rate 2.00 2.00 2.00 07/16/19 07/16/19 07/16/19 07/16/19 01:00 01:00 02:00 02:19 Pulse 94 100 93 Resp 21 19 B/P (MAP) 158/96 (116) 161/88 (112) Pulse Ox 94 95 95 O2 Delivery High Flow N/C High Flow N/C High Flow N/C O2 Flow Rate 2.00 2.00 2.00 07/16/19 07/16/19 07/16/19 07/16/19 03:00 03:15 03:15 04:00 Temp 37.5 Pulse 112 110 Resp 16 21 B/P (MAP) 157/83 (107) 161/82 (108) Pulse Ox 94 94 O2 Delivery High Flow N/C Nasal Cannula High Flow N/C O2 Flow Rate 2.00 2.00 2.00 07/16/19 07/16/19 07/16/19 07/16/19 05:00 06:00 07:00 07:00 Pulse 104 92 121 96 Resp 16 20 11 B/P (MAP) 161/90 (113) 167/90 (115) Pulse Ox 94 95 93 O2 Delivery High Flow N/C High Flow N/C High Flow N/C O2 Flow Rate 2.00 2.00 2.00 07/16/19 07/16/19 07:15 08:00 Pulse 106 Resp 25 B/P (MAP) 153/88 (109) Pulse Ox 95 93 O2 Delivery High Flow N/C Room Air O2 Flow Rate 1.00 07/16/19 00:00 Intake Total 1350 ml Output Total 1050 ml Balance 300 ml Capillary Refill : Less Than 3 Seconds Constitutional: AAO x 3, well-developed, well-nourished HEENT: PERRL, hearing is well preserved, oral hygience is good Neck: No carotid bruit; carotid pulses are 2 + bilaterally Respiratory: No accessory muscle use, No respiratory distress; chest expansion is symmetric, chest is bilaterally symmetric, rhonchi (scattered), other (coarse lung sounds) Cardiovascular: regular rate-rhythm; No JVD; S1 and S2 Gastrointestinal: distended, audible bowel sounds (hyperactive), other (epigastric tenderness) Extremities: no lower extremity edema bilateral Neurologic/Psychiatric: grossly intact (moves all extremities) Skin: No rash on exposed areas, No ulcerations on exposed areas; other (R ACW incision sites x2 without redness, swelling or bruising) Data Review Labs Laboratory Tests 07/15/19 11:01: Blood Gas Puncture Site LEFT RADIAL, Blood Gas Patient Temperature 36.8, Arterial Blood pH 7.37, Arterial Blood Partial Pressure CO2 39, Arterial Blood Partial Pressure O2 71L, Arterial Blood HCO3 22L, Arterial Blood Total CO2 23.6, Arterial Blood Oxygen Saturation 95, Arterial Blood Base Excess -2.0, Rich Test POSITIVE, Blood Gas Ventilator Setting NO, Blood Gas Inspired Oxygen 4 L 07/15/19 11:10: White Blood Count 15.9H, Red Blood Count 4.83, Hemoglobin 12.3L, Hematocrit 38L, Mean Corpuscular Volume 80, Mean Corpuscular Hemoglobin 25, Mean Corpuscular Hemoglobin Concent 32, Red Cell Distribution Width 19.1H, Platelet Count 293, Mean Platelet Volume 10.9H, Neutrophils (%) (Auto) 92H, Lymphocytes (%) (Auto) 3L, Monocytes (%) (Auto) 5, Eosinophils (%) (Auto) 1, Basophils (%) (Auto) 0, Neutrophils # (Auto) 14.6H, Lymphocytes # (Auto) 0.4L, Monocytes # (Auto) 0.7, Eosinophils # (Auto) 0.1, Basophils # (Auto) 0.1, Neutrophils % (Manual) 83, Lymphocytes % (Manual) 1, Monocytes % (Manual) 5, Eosinophils % (Manual) 0, Basophils % (Manual) 0, Band Neutrophils 11, Anisocytosis SLIGHT, Microcytosis SLIGHT, Target Cells SLIGHT, Matos-[place] Bodies SLIGHT, Acanthocytes SLIGHT, Sodium Level 138, Potassium Level 4.2, Chloride Level 108H, Carbon Dioxide Level 23, Anion Gap 7, Blood Urea Nitrogen 19H, Creatinine 1.01, Estimat Glomerular Filtration Rate > 60, BUN/Creatinine Ratio 19, Glucose Level 97, Lactic Acid Level 2.16*H, Calcium Level 9.5, Corrected Calcium 9.8, Phosphorus Level 3.0, Magnesium Level 1.8, Total Bilirubin 0.3, Aspartate Amino Transf (AST/SGOT) 17, Alanine Aminotransferase (ALT/SGPT) 11, Alkaline Phosphatase 65, Troponin I < 0.028, B-Type Natriuretic Peptide 19.9, Total Protein 6.2L, Albumin 3.6 07/15/19 13:17: Lactic Acid Level 2.75*H 07/15/19 18:55: Urine Color YELLOW, Urine Clarity CLEAR, Urine pH 6.0, Urine Specific [place] 1.010L, Urine Protein NEGATIVE, Urine Glucose (UA) NEGATIVE, Urine Ketones NEGATIVE, Urine Nitrite NEGATIVE, Urine Bilirubin NEGATIVE, Urine Urobilinogen 0.2, Urine Leukocyte Esterase NEGATIVE, Urine RBC (Auto) NEGATIVE, Urine RBC 2- 5H, Urine WBC 2-5, Urine Squamous Epithelial Cells RARE, Urine Renal Epithelial Cells 0-2, Urine Crystals NONE, Urine Bacteria NEGATIVE, Urine Casts PRESENT, Urine Hyaline Casts RARE, Urine Mucus SMALLH, Urine Culture Indicated NO 07/16/19 03:25: White Blood Count 23.5H, Red Blood Count 4.26L, Hemoglobin 11.0L, Hematocrit 34L , Mean Corpuscular Volume 79L, Mean Corpuscular Hemoglobin 26, Mean Corpuscular Hemoglobin Concent 33, Red Cell Distribution Width 18.4H, Platelet Count 267, Mean Platelet Volume 11.1H, Neutrophils (%) (Auto) 83H, Lymphocytes (%) (Auto) 6L, Monocytes (%) (Auto) 10, Eosinophils (%) (Auto) 2, Basophils (%) (Auto) 0, Neutrophils # (Auto) 19.5H, Lymphocytes # (Auto) 1.3, Monocytes # (Auto) 2.3H, Eosinophils # (Auto) 0.4H, Basophils # (Auto) 0.1, Sodium Level 138, Potassium Level 3.3L, Chloride Level 106, Carbon Dioxide Level 22, Anion Gap 10, Blood Urea Nitrogen 20H, Creatinine 0.83, Estimat Glomerular Filtration Rate > 60, BUN/Creatinine Ratio 24, Glucose Level 118H, Calcium Level 9.0, Phosphorus Level 2.7, Magnesium Level 1.7, Troponin I < 0.028 Microbiology 07/16/19 Influenza Types A,B Antigen (TAMAR) - Final, Complete Radiology NAME: Talita VALE Priyank [facility] REC#: [id number] PT STATUS: REG [facility] [place] : 1950 PHYSICIAN: DYLAN ANDERSON DO ADMIT DATE: 07/15/19/ICU Signed Date of Exam:07/15/19 CT ANGIO CHEST W PROCEDURE: CT angiography of the chest with contrast. TECHNIQUE: Multiple contiguous axial images were obtained through the chest after uneventful bolus administration of intravenous contrast. 3D reconstructed CTA MIP acquisitions were also performed. Auto Exposure Controls were utilized during the CT exam to meet ALARA standards for radiation dose reduction. INDICATION: Chest pain, shortness of breath and hypertension with tachycardia. FINDINGS: Examination is technically limited due to respiratory motion. No definitive filling defects are seen within the pulmonary arteries to suggest pulmonary embolism. Thoracic aorta is normal in caliber without evidence of dissection. There are some minimal coronary artery calcifications. There are some patchy groundglass infiltrates in the lung bases which are nonspecific. There is no pneumothorax. There is pathologically enlarged adenopathy in the left axilla. The largest lymph node measures up to 4 cm. Additionally there is some mildly enlarged lymphadenopathy in the right axilla. There also appears to be some enlarged adenopathy in the left supraclavicular region. There appears to have been recent Ptseem-e-Ioud catheter placement as there is some subcutaneous gas in the tissues of the right chest surrounding the port. There is a small hiatal hernia The visualized intra-abdominal structures are grossly unremarkable, apart from a right renal cyst. There are degenerative changes in the spine. IMPRESSION: Technically limited exam due to respiratory motion. It is difficult to exclude small peripheral subsegmental filling defects, however no central or large filling defects are appreciated to suggest pulmonary embolism. There is no evidence of dissection. Pathologically enlarged adenopathy in the axilla bilaterally as well as in the left supraclavicular region. This is nonspecific however suspect for lymphoma. Patchy groundglass infiltrates in lung bases which are nonspecific however may reflect some mild venous congestion Coronary artery calcifications. Small hiatal hernia. Right renal cyst. Dictated by: Dictated on workstation # [id number] Dict: 07/15/19 1024 Trans: 07/15/19 1128 [facility] [id number] Interpreted by: KARLIE RODRIGUEZ MD Electronically signed by: KARLIE RODRIGUEZ MD 07/15/19 1128 ECG Impression ECG Initial ECG Rhythm: Normal Sinus A/P-Cardiology Assessment/Admission Diagnosis Chest discomfort post port placement Pneumonia - pulmonary services managing MPI of October 2019 showed no evidence of ischemia or infarction Echo of October 2019 showed LVEF 55-65%; grade 1 diastolic dysfunction; RVSP approx 25mmHg HTN Sinus tachycardia Recently diagnosed with lymphoma GERD H/H seen on CT of the chest of 07-15-2019 Discussion and Recomendations Chest discomfort of undetermined etiology - no evidence of ACS thus far - second troponin pending Leukocytosis - management per medical/ICU services Echocardiogram PPI d/t h/o GERD Monitor lab Replace electrolytes Start Toprol XL d/t HTN and sinus tachycardia Further recs will be based on his hospital course We would like to thank medical services for this consult Clinical Quality Measures DVT/VTE Risk/Contraindication: Risk Factor Score Per Nursin RFS Level Per Nursing on Admit: 4+=Very High LUIS ENRIQUE MATHEWS Jul 16, 2019 08:30
[2019-07-16] MEDS ORDERED: PANTOPRAZOLE 40 MG (PROTONIX) VIAL IV NR (08:45)
[2019-07-16] MEDS ORDERED: meTOproloL SUCCINATE 50 MG (TOPROL XL) TAB PO NR (09:00)
[2019-07-16] MEDS: meTOproloL SUCCINATE 50 MG (TOPROL XL) TAB PO SCH (09:00)
--- NOTE | 2019-07-16 09:39 | Progress Note - Surgery ---
Subjective Time Seen by a Provider: 09:16 Subjective/Events-last exam Pt seen and examined, events of yesterday noted. He had some urinary retention last night and had schmitt placed. He still complains of some chest pain and states his legs hurt below the knees; however this leg pain is not something new. He also states he is tired (according to nurses he did not sleep much last night). Pt has been talking to nurses about severe GERD and "chew tums at home all the time". Pt denies abdominal pain. Review of Systems General: Fatigue, Malaise HEENT: Head Aches; No Eye Pain, No Sore Throat Pulmonary: Dyspnea, Cough Cardiovascular: Chest Pain, Palpitations Gastrointestinal: No: Nausea, Vomiting, Abdominal Pain Genitourinary: No Dysuria, No Hematuria Focused Exam Lactate Level 07/15/19 11:10: Lactic Acid Level 2.16*H 07/15/19 13:17: Lactic Acid Level 2.75*H Objective Exam Vital Signs Date Time Temp Pulse Resp B/P (MAP) Pulse Ox O2 Delivery O2 Flow Rate FiO2 07/16/19 09:00 95 17 138/86 (103) 94 Room Air 07/16/19 08:00 106 25 153/88 (109) 93 Room Air 07/16/19 07:15 95 High Flow N/C 1.00 07/16/19 07:00 96 11 93 High Flow N/C 2.00 07/16/19 07:00 121 07/16/19 06:00 92 20 167/90 (115) 95 High Flow N/C 2.00 07/16/19 05:00 104 16 161/90 (113) 94 High Flow N/C 2.00 07/16/19 04:00 110 21 161/82 (108) 94 High Flow N/C 2.00 07/16/19 03:15 Nasal Cannula 2.00 07/16/19 03:15 37.5 07/16/19 03:00 112 16 157/83 (107) 94 High Flow N/C 2.00 07/16/19 02:19 95 High Flow N/C 2.00 07/16/19 02:00 93 19 161/88 (112) 95 High Flow N/C 2.00 07/16/19 01:00 100 07/16/19 01:00 94 21 158/96 (116) 94 High Flow N/C 2.00 07/16/19 00:00 98 14 148/79 (102) 96 High Flow N/C 2.00 07/15/19 23:35 Nasal Cannula 2.00 07/15/19 23:34 37.0 07/15/19 23:00 103 25 150/81 (104) 95 High Flow N/C 2.00 07/15/19 22:30 High Flow N/C 2.00 07/15/19 22:05 96 High Flow N/C 3.00 07/15/19 22:00 96 23 152/88 (109) 97 High Flow N/C 3.00 07/15/19 21:31 37.9 07/15/19 21:01 36.8 07/15/19 21:00 100 27 157/88 (111) 95 High Flow N/C 3.00 07/15/19 20:00 100 18 148/84 (105) 97 High Flow N/C 3.00 07/15/19 20:00 Room Air 07/15/19 19:13 38.2 102 24 154/85 (108) 97 07/15/19 19:00 111 07/15/19 18:37 99 OxyMask 6.00 07/15/19 18:30 High Flow N/C 3.00 07/15/19 18:00 101 30 129/110 (116) 94 Room Air 07/15/19 17:00 107 33 165/105 (125) 96 Room Air 07/15/19 16:00 122 20 157/88 (111) 93 Room Air 07/15/19 16:00 Room Air 07/15/19 15:36 93 Room Air 07/15/19 15:00 104 39 148/83 (104) 92 Room Air 07/15/19 14:38 Room Air 07/15/19 14:13 94 07/15/19 14:00 98 28 164/85 (111) 94 OxyMask 4.00 07/15/19 13:00 110 26 142/85 (104) 98 OxyMask 4.00 07/15/19 12:48 105 07/15/19 12:00 80 12 153/135 (141) 100 OxyMask 4.00 07/15/19 12:00 OxyMask 2.00 07/15/19 11:14 OxyMask 6.00 07/15/19 11:00 84 36 118/80 (93) 100 OxyMask 4.00 07/15/19 10:43 OxyMask 4.00 07/15/19 10:00 109 40 113/86 (95) 97 OxyMask 6.00 07/15/19 09:45 OxyMask 6 07/15/19 09:40 OxyMask 6 07/15/19 09:40 36.4 22 151/86 (107) 99 OxyMask 6 07/15/19 09:35 22 147/91 (109) 97 OxyMask 6 07/15/19 09:30 22 86/72 (77) 100 OxyMask 6 I & O 07/16/19 07:00 Intake Total 3900 ml Output Total 1450 ml Balance 2450 ml Capillary Refill : Less Than 3 Seconds General Appearance: No Apparent Distress, Anxious, Chronically ill HEENT: PERRL/EOMI Neck: Full Range of Motion, Normal Inspection, Supple Respiratory: No Accessory Muscle Use, No Respiratory Distress, Decreased Breath Sounds, Wheezing Cardiovascular: Regular Rate, Rhythm, No Murmur Gastrointestinal: normal bowel sounds, non tender, soft Extremity: Normal Capillary Refill, Normal Inspection, No Calf Tenderness, No Pedal Edema Neurologic/Psychiatric: Alert, Oriented x3 Skin: Warm/Dry, Pallor Lymphatic: No Adenopathy (neck, axilla or groin) Results Lab Laboratory Tests 07/15/19 11:01: Blood Gas Puncture Site LEFT RADIAL, Blood Gas Patient Temperature 36.8, Arterial Blood pH 7.37, Arterial Blood Partial Pressure CO2 39, Arterial Blood Partial Pressure O2 71L, Arterial Blood HCO3 22L, Arterial Blood Total CO2 23.6, Arterial Blood Oxygen Saturation 95, Arterial Blood Base Excess -2.0, Rich Test POSITIVE, Blood Gas Ventilator Setting NO, Blood Gas Inspired Oxygen 4 L 07/15/19 11:10: White Blood Count 15.9H, Red Blood Count 4.83, Hemoglobin 12.3L, Hematocrit 38L, Mean Corpuscular Volume 80, Mean Corpuscular Hemoglobin 25, Mean Corpuscular Hemoglobin Concent 32, Red Cell Distribution Width 19.1H, Platelet Count 293, Mean Platelet Volume 10.9H, Neutrophils (%) (Auto) 92H, Lymphocytes (%) (Auto) 3L, Monocytes (%) (Auto) 5, Eosinophils (%) (Auto) 1, Basophils (%) (Auto) 0, Neutrophils # (Auto) 14.6H, Lymphocytes # (Auto) 0.4L, Monocytes # (Auto) 0.7, Eosinophils # (Auto) 0.1, Basophils # (Auto) 0.1, Neutrophils % (Manual) 83, Lymphocytes % (Manual) 1, Monocytes % (Manual) 5, Eosinophils % (Manual) 0, Basophils % (Manual) 0, Band Neutrophils 11, Anisocytosis SLIGHT, Microcytosis SLIGHT, Target Cells SLIGHT, Matos-[place] Bodies SLIGHT, Acanthocytes SLIGHT, Sodium Level 138, Potassium Level 4.2, Chloride Level 108H, Carbon Dioxide Level 23, Anion Gap 7, Blood Urea Nitrogen 19H, Creatinine 1.01, Estimat Glomerular Filtration Rate > 60, BUN/Creatinine Ratio 19, Glucose Level 97, Lactic Acid Level 2.16*H, Calcium Level 9.5, Corrected Calcium 9.8, Phosphorus Level 3.0, Magnesium Level 1.8, Total Bilirubin 0.3, Aspartate Amino Transf (AST/SGOT) 17, Alanine Aminotransferase (ALT/SGPT) 11, Alkaline Phosphatase 65, Troponin I < 0.028, B-Type Natriuretic Peptide 19.9, Total Protein 6.2L, Albumin 3.6 07/15/19 13:17: Lactic Acid Level 2.75*H 07/15/19 18:55: Urine Color YELLOW, Urine Clarity CLEAR, Urine pH 6.0, Urine Specific [place] 1.010L, Urine Protein NEGATIVE, Urine Glucose (UA) NEGATIVE, Urine Ketones NEGA TIVE, Urine Nitrite NEGATIVE, Urine Bilirubin NEGATIVE, Urine Urobilinogen 0.2, Urine Leukocyte Esterase NEGATIVE, Urine RBC (Auto) NEGATIVE, Urine RBC 2-5H, Urine WBC 2-5, Urine Squamous Epithelial Cells RARE, Urine Renal Epithelial C ells 0-2, Urine Crystals NONE, Urine Bacteria NEGATIVE, Urine Casts PRESENT, Urine Hyaline Casts RARE, Urine Mucus SMALLH, Urine Culture Indicated NO 07/16/19 03:25: White Blood Count 23.5H, Red Blood Count 4.26L, Hemoglobin 11.0L, Hematocrit 34L , Mean Corpuscular Volume 79L, Mean Corpuscular Hemoglobin 26, Mean Corpuscular Hemoglobin Concent 33, Red Cell Distribution Width 18.4H, Platelet Count 267, Mean Platelet Volume 11.1H, Neutrophils (%) (Auto) 83H, Lymphocytes (%) (Auto) 6L, Monocytes (%) (Auto) 10, Eosinophils (%) (Auto) 2, Basophils (%) (Auto) 0, Neutrophils # (Auto) 19.5H, Lymphocytes # (Auto) 1.3, Monocytes # (Auto) 2.3H, Eosinophils # (Auto) 0.4H, Basophils # (Auto) 0.1, Sodium Level 138, Potassium Level 3.3L, Chloride Level 106, Carbon Dioxide Level 22, Anion Gap 10, Blood Urea Nitrogen 20H, Creatinine 0.83, Estimat Glomerular Filtration Rate > 60, BUN/Creatinine Ratio 24, Glucose Level 118H, Calcium Level 9.0, Phosphorus Level 2.7, Magnesium Level 1.7, Troponin I < 0.028 Microbiology 07/16/19 Influenza Types A,B Antigen (TAMAR) - Final, Complete Assessment/Plan Assessment/Plan Assessment/Plan Chest pain Hypoxia Elevated WBC Urinary retention GERD So far troponins are negative and EKG did not show anything; he is scheduled for an echo today (echo and stress from last year were normal). His O2 saturation has been running around 94% not on O2, have ordered a CXR today. Will D/C schmitt and start pt on home meds. He will need an EGD but probably should do this as an outpt; most likely I will request this be done in the OR and pt fully intubated to try and avoid a repeat of whatever happened yesterday. Will await full input, discussion and recommendations from Cardiology and Pulmonology; because still not sure what happened. I am not sure he needs ABX, most likely his elevated WBC is due to surgery, stress and possibly some aspiration effects. Clinical Quality Measures DVT/VTE Risk/Contraindication: Risk Factor Score Per Nursin RFS Level Per Nursing on Admit: 4+=Very High DYLAN ANDERSON DO Jul 16, 2019 09:38
--- NOTE | 2019-07-16 10:19 | Diagnostic Imaging Report ---
INDICATION: Respiratory distress. Right subclavian tip near the cavoatrial junction. Heart mildly enlarged. There is some prominence of the right paratracheal superior mediastinum corresponding to adenopathy. Better seen at chest CT one day prior. There is irregularity of multiple lateral right mid to upper ribs owing to old healed fractures. No demonstrated pneumothorax. The heart mildly enlarged. No focal consolidation. IMPRESSION: Old rib deformities. Prominence of the right paratracheal mediastinum. Central line in good position without pneumothorax. Dictated by: Dictated on workstation # [id number]
[2019-07-16] MEDS: ANTACID SUSP 30 ML UDC (MYLANTA) PO SCH ×4 (11:00→20:34)
--- NOTE | 2019-07-16 11:05 | Anesthesia-General Post-Op ---
MAC Patient Condition Mental Status/LOC: Same as Preop Cardiovascular: Unsatisfactory Nausea/Vomiting: Absent Respiratory: Satisfactory Pain: Uncontrolled Complications: Present Post Op Complications Complications None Follow Up Care/Instructions Patient Instructions None needed. Anesthesiology Discharge Order Discharge Order late entry from 07/15/19 at 1000: Patient underwent a port placement this am under sedation with anesthesia. Early on in sedation, prior to even starting the procedure, the patient began coughing and became disoriented and restless. The sedation was turned off; however, Dr. Loco placed the port using local. I coe pported the patient with O2 and tried to reorient him. Abruptly he bacame tachycardic with HR 130+ and NIBP 70/40. Dr. Hassan was called to the room to assist. The patient was finally able to open his eyes after the procedure was over and c/o severe chest pain. His face was king in color, SaO2 97-100%. We obtained an EKG and consulted with Stacy. CTA was ordered per Dr. Loco and the patient was sent from PACU to CTA. After CTA the patient went to ICU9. We will continue to follow up with the patient. GRETA ORELLANA CRNA Jul 16, 2019 11:05
[2019-07-16] MEDS ORDERED: CEFEPIME 1 GM (MAXIPIME) VIAL ONE ×2 (13:00→17:29)
[2019-07-16] MEDS ORDERED: WATER (STERILE) FOR INJECTION 10 ML ONE ×2 (13:00→17:29)
--- NOTE | 2019-07-16 13:00 | NUR ---
1300 Mylanta not admin due to am dose given close to 11 am with a Protonix injection.
[2019-07-16] MEDS ORDERED: PANTOPRAZOLE 40 MG (PROTONIX) VIAL ONE (13:01)
[2019-07-16] MEDS: CALCIUM CARBONATE 500 MG (TUMS) TAB.CHEW PO PRN (13:01)
[2019-07-16] MEDS: VANCOMYCIN 1250 MG/NS 250 ML IVPB IV SCH ×2 (17:38)
[2019-07-16] MEDS ORDERED: oxyCODONE/APAP 5/325MG (PERCOCET 5) TABLET PO PRN (18:00)
[2019-07-16] MEDS ORDERED: CYCLOBENZAPRINE 10 MG (FLEXERIL) TAB PO PRN (18:00)
[2019-07-16] MEDS ORDERED: SUMAtriptan 50 MG (IMITREX) TAB PO PRN (18:00)
--- NOTE | 2019-07-16 18:52 | Consultation-Cardiology ---
HPI-Cardiology Cardiology Consultation: Date of Consultation 07/16/19 Time Seen by a Provider: 09:30 Date of Admission Attending Physician Ralph Loco DO Admitting Physician No,Local Physician Consulting Physician HUMBERTO ZHAO MD, MA, FACP, FACC, FSCAI, CCDS HPI: Chief Complaint: CC: Chest pain HPI Mr. Gardner is a 68 year old male who underwent port placement to the right chest in preparation for chemo tx d/t lymphoma. He states post port placement he developed lower chest, epigastric pressure to sharp stabbing pain which comes and goes. He reports activity or emotional stress do not change the discomfort. He reports he has had frequent abd bloating for which he has been taking TUMS at least twice a day at home. He reports he feels his abd is bloated and that he needs to belch. He reports a feeling of fast heartbeat at times which lasts for a few minutes. He reports chronic SOB which has been somewhat worse. He reports occ cough of thick yellow to white sputum. He reports he had a fever last night. He denies any chills, n/v/d. He reports occ lower ext swelling. He reports chronic back pain which is unchanged. Review of Systems-Cardiology Review of Systems Constitutional: No chills; fever Eyes: No vision change Ears/Nose/Throat: No epistaxis, No recent hearing loss Respiratory: As described under HPI Cardiovascular: As described under HPI Gastrointestinal: As described under HPI Genitourinary: No dysuria, No hematuria Musculoskeletal: As describe under HPI Skin: No rash on exposed areas, No ulcerations on exposed areas Psychiatric/Neurological: No anxiety, No depression, No seizure, No focal weakness, No syncope Hematologic: No bleeding abnormalities WKG-Zemlqv-Ibpqlc Hx Patient Social History Alcohol Use: Denies Use Recreational Drug Use: No Smoking Status: Never a Smoker 2nd Hand Smoke Exposure: No Recent Foreign Travel: No Recent Infectious Disease Expo: No Immunizations Up To Date Date of Pneumonia Vaccine: Jul 08, 2017 Date of Influenza Vaccine: Apr 03, 2019 Past Medical History PMH As described under Assessment. Family Medical History Family Medical History: Father had HTN. Mother had cancer and DM. Sister has DM. No reported family h/o CAD. Allergies and Home Medications Allergies Coded Allergies: Penicillins (Verified Allergy, Unknown, 07/09/19) niacin (Verified Allergy, Unknown, 07/09/19) simvastatin (Verified Allergy, Unknown, 07/09/19) Home Medications Albuterol Sulfate 1 Puff Puff, 2 PUFF IH Q4H PRN for SHORTNESS OF BREATH, (Reported) 1 PUFF = 90 MCG Allopurinol 300 Mg Tablet, 300 MG PO DAILY, (Reported) Amlodipine Besylate 10 Mg Tablet, 10 MG PO DAILY, (Reported) Cyclobenzaprine HCl 10 Mg Tablet, 10 MG PO PRN, (Reported) Docusate Sodium 100 Mg Capsule, 100 MG PO DAILY, (Reported) Ferrous Sulfate 325 Mg Tablet, 325 MG PO DAILY, (Reported) Loratadine 10 Mg Tablet, 10 MG PO DAILY, (Reported) Losartan Potassium 100 Mg Tablet, 100 MG PO DAILY, (Reported) Oxycodone HCl/Acetaminophen 1 Each Tablet, 1 EACH PO Q4H PRN for PAIN-SEVERE, (Reported) Ranitidine HCl 150 Mg Tablet, 150 MG PO DAILY, (Reported) Sumatriptan Succinate 50 Mg Tablet, 50 MG PO PRN, (Reported) Tamsulosin HCl 0.4 Mg Cap, 0.4 MG PO DAILY, (Reported) Tramadol HCl 50 Mg Tablet, 50 MG PO Q6H, (Reported) Patient Home Medication List Home Medication List Reviewed: Yes Physical Exam-Cardiology Physical Exam Vital Signs/I&O 07/16/19 07/16/19 07/16/19 07/16/19 07:00 07:00 07:15 08:00 Pulse 121 96 106 Resp 11 25 B/P (MAP) 153/88 (109) Pulse Ox 93 95 93 O2 Delivery High Flow N/C High Flow N/C Room Air O2 Flow Rate 2.00 1.00 07/16/19 07/16/19 07/16/19 07/16/19 08:00 09:00 10:00 11:00 Pulse 95 91 82 Resp 17 24 18 B/P (MAP) 138/86 (103) 166/92 (116) 156/83 (107) Pulse Ox 94 94 93 O2 Delivery Room Air Room Air Room Air Room Air 07/16/19 07/16/19 07/16/19 07/16/19 11:10 12:00 12:00 12:11 Temp 38.2 Pulse 103 Resp 34 B/P (MAP) 171/95 (120) Pulse Ox 92 90 O2 Delivery Room Air Room Air Room Air 07/16/19 07/16/19 07/16/19 07/16/19 12:24 13:00 14:00 14:58 Pulse 110 103 91 Resp 26 19 B/P (MAP) 155/85 (108) 135/68 (90) Pulse Ox 95 92 92 O2 Delivery Room Air Room Air Room Air 07/16/19 07/16/19 07/16/19 07/16/19 15:00 15:33 16:00 16:00 Temp 37.1 Pulse 81 87 Resp 26 15 B/P (MAP) 150/86 (107) 102/71 (81) Pulse Ox 94 98 O2 Delivery Room Air Room Air Room Air 07/16/19 07/16/19 07/16/19 17:00 18:00 18:25 Pulse 84 88 Resp 24 21 B/P (MAP) 150/85 (106) 154/83 (106) Pulse Ox 92 93 92 O2 Delivery Room Air Room Air Room Air 07/16/19 00:00 Intake Total 1350 ml Output Total 1050 ml Balance 300 ml Capillary Refill : Less Than 3 Seconds Constitutional: AAO x 3, well-developed, well-nourished HEENT: PERRL, hearing is well preserved, oral hygience is good Neck: No carotid bruit; carotid pulses are 2 + bilaterally Respiratory: No accessory muscle use, No respiratory distress; chest expansion is symmetric, chest is bilaterally symmetric, rhonchi (scattered), other (coarse lung sounds) Cardiovascular: regular rate-rhythm; No JVD; S1 and S2 Gastrointestinal: distended, audible bowel sounds (hyperactive), other (epigastric tenderness) Extremities: no lower extremity edema bilateral Neurologic/Psychiatric: grossly intact (moves all extremities) Skin: No rash on exposed areas, No ulcerations on exposed areas; other (R ACW incision sites x2 without redness, swelling or bruising) Data Review Labs Laboratory Tests 07/15/19 18:55: Urine Color YELLOW, Urine Clarity CLEAR, Urine pH 6.0, Urine Specific [place] 1.010L, Urine Protein NEGATIVE, Urine Glucose (UA) NEGATIVE, Urine Ketones NEGATIVE, Urine Nitrite NEGATIVE, Urine Bilirubin NEGATIVE, Urine Urobilinogen 0.2, Urine Leukocyte Esterase NEGATIVE, Urine RBC (Auto) NEGATIVE, Urine RBC 2- 5H, Urine WBC 2-5, Urine Squamous Epithelial Cells RARE, Urine Renal Epithelial Cells 0-2, Urine Crystals NONE, Urine Bacteria NEGATIVE, Urine Casts PRESENT, Urine Hyaline Casts RARE, Urine Mucus SMALLH, Urine Culture Indicated NO 07/16/19 03:25: White Blood Count 23.5H, Red Blood Count 4.26L, Hemoglobin 11.0L, Hematocrit 34L , Mean Corpuscular Volume 79L, Mean Corpuscular Hemoglobin 26, Mean Corpuscular Hemoglobin Concent 33, Red Cell Distribution Width 18.4H, Platelet Count 267, Mean Platelet Volume 11.1H, Neutrophils (%) (Auto) 83H, Lymphocytes (%) (Auto) 6L, Monocytes (%) (Auto) 10, Eosinophils (%) (Auto) 2, Basophils (%) (Auto) 0, Neutrophils # (Auto) 19.5H, Lymphocytes # (Auto) 1.3, Monocytes # (Auto) 2.3H, Eosinophils # (Auto) 0.4H, Basophils # (Auto) 0.1, Sodium Level 138, Potassium Level 3.3L, Chloride Level 106, Carbon Dioxide Level 22, Anion Gap 10, Blood Urea Nitrogen 20H, Creatinine 0.83, Estimat Glomerular Filtration Rate > 60, BUN/Creatinine Ratio 24, Glucose Level 118H, Calcium Level 9.0, Phosphorus Level 2.7, Magnesium Level 1.7, Troponin I < 0.028 Microbiology 07/16/19 Influenza Types A,B Antigen (TAMAR) - Final, Complete 07/15/19 Blood Culture - Preliminary, Resulted No growth Laboratory Tests 07/15/19 11:10 07/16/19 03:25 A/P-Cardiology Assessment/Admission Diagnosis Chest discomfort after port placement, no evidence of ac coronary syndrome Pneumonia - Pulmonary services managing MPI of October 2019 showed no evidence of ischemia or infarction Echo of 07/16/2019 showed LVEF 50-55%; grade 2 diastolic dysfunction; mild to mod TR; RVSP approx 23mmHg HTN Sinus tachycardia Recently diagnosed with lymphoma GERD H/H seen on CT of the chest of 07-15-2019 Discussion and Recomendations PPI d/t h/o GERD Monitor lab Replace electrolytes Start Toprol XL d/t HTN and sinus tachycardia Further recs will be based on his hospital course I discussed his case with Dr Loco this am We would like to thank Medical and Surg services for this consult Clinical Quality Measures DVT/VTE Risk/Contraindication: Risk Factor Score Per Nursin RFS Level Per Nursing on Admit: 4+=Very High HUMBERTO ZHAO MD FACP FAC CCDS Jul 16, 2019 18:52
[2019-07-17] VITALS (8 sets, daily range): BP systolic 144–181; BP diastolic 82–98
[2019-07-17] MEDS ORDERED: WATER (STERILE) FOR INJECTION 10 ML ONE ×2 (00:09→06:24)
[2019-07-17] MEDS ORDERED: CEFEPIME 1 GM (MAXIPIME) VIAL ONE ×2 (00:09→06:24)
[2019-07-17] MEDS: LACTATED RINGERS 1,000 ML IV SCH ×2 (00:18→05:16)
[2019-07-17] MEDS: CEFEPIME INJECTION 1,000 MG in WATER (STERILE) FOR INJECTION 10 ML IV SCH ×2 (00:19→06:48)
[2019-07-17] MEDS: RT-ALBUTEROL/IPRATROPIUM 3 ML (DUONEB) VIAL INH SCH ×3 (02:10→10:06)
[2019-07-17 03:44] LABS: BASOPHILS # (AUTO) 0.1 10^3/uL (0.0-0.1); BASOPHILS % (AUTO) 0 % (0-10); EOSINOPHILS # (AUTO) 1.3 10^3/uL (0.0-0.3); EOSINOPHILS % (AUTO) 8 % (0-10); HEMATOCRIT 32 % (40-54); HEMOGLOBIN 10.4 G/DL (13.3-17.7); LYMPHOCYTES # (AUTO) 0.7 X 10^3 (1.0-4.0); LYMPHOCYTES % (AUTO) 4 % (12-44); MEAN CORPUSCULAR HEMOGLOBIN 26 PG (25-34); MEAN CORPUSCULAR HGB CONC 33 G/DL (32-36); MEAN CORPUSCULAR VOLUME 79 FL (80-99); MEAN PLATELET VOLUME 10.6 FL (7.4-10.4); MONOCYTES # (AUTO) 1.9 X 10^3 (0.0-1.0); MONOCYTES % (AUTO) 11 % (0-12); NEUTROPHILS # (AUTO) 13.8 X 10^3 (1.8-7.8); NEUTROPHILS % (AUTO) 77 % (42-75); PLATELET COUNT 230 10^3/uL (130-400); RED CELL DISTRIBUTION WIDTH 19.1 % (10.0-14.5); WHITE BLOOD COUNT 17.9 10^3/uL (4.3-11.0)
[2019-07-17 04:11] LABS: BUN/CREATININE RATIO 15; CALCIUM 8.8 MG/DL (8.5-10.1); CARBON DIOXIDE 22 MMOL/L (21-32); CHLORIDE 107 MMOL/L (98-107); CREATININE SERUM 0.92 MG/DL (0.60-1.30); GFR ESTIMATED > 60; GLUCOSE 96 MG/DL (70-105); MAGNESIUM 1.8 MG/DL (1.6-2.4); PHOSPHORUS 1.7 MG/DL (2.3-4.7); POTASSIUM 4.1 MMOL/L (3.6-5.0); SODIUM 137 MMOL/L (135-145)
[2019-07-17] MEDS: VANCOMYCIN 1250 MG/NS 250 ML IVPB IV SCH ×2 (05:11)
[2019-07-17] MEDS ORDERED: FUROSEMIDE 40 MG/4 ML INJ (LASIX) ONE (06:41)
--- NOTE | 2019-07-17 06:41 | Pulmonary Progress Note ---
Sepsis Event Evaluation Height, Weight, BMI Height: 5'11.00" Weight: 188lbs. 0.0oz. 85.675451uk; 27.64 BMI Method: Focused Exam Lactate Level 07/15/19 11:10: Lactic Acid Level 2.16*H 07/15/19 13:17: Lactic Acid Level 2.75*H Exam Exam Vital Signs Date Time Temp Pulse Resp B/P (MAP) Pulse Ox O2 Delivery O2 Flow Rate FiO2 07/17/19 05:00 76 18 144/91 (108) 93 Room Air 07/17/19 04:00 79 16 168/98 (121) 92 Room Air 07/17/19 04:00 36.9 07/17/19 04:00 94 Room Air 07/17/19 03:00 100 33 181/94 (123) 93 Room Air 07/17/19 02:10 93 Room Air 07/17/19 02:00 81 24 168/85 (112) 93 Room Air 07/17/19 01:00 90 07/17/19 01:00 89 25 167/82 (110) 93 Room Air 07/17/19 00:00 37.3 07/17/19 00:00 94 Room Air 07/17/19 00:00 80 17 158/89 (112) 94 Room Air 07/16/19 23:00 84 24 174/100 (124) 92 Room Air 07/16/19 22:00 87 24 130/72 (91) 92 Room Air 07/16/19 21:00 94 26 170/91 (117) 94 Room Air 07/16/19 20:43 92 Room Air 07/16/19 20:00 80 24 155/76 (102) 92 Room Air 07/16/19 20:00 94 Room Air 07/16/19 19:18 36.8 07/16/19 19:00 91 23 160/104 (122) 92 Room Air 07/16/19 19:00 92 07/16/19 18:25 92 Room Air 07/16/19 18:00 88 21 154/83 (106) 93 Room Air 07/16/19 17:00 84 24 150/85 (106) 92 Room Air 07/16/19 16:00 87 15 102/71 (81) 98 Room Air 07/16/19 16:00 Room Air 07/16/19 15:33 37.1 07/16/19 15:00 81 26 150/86 (107) 94 Room Air 07/16/19 14:58 92 Room Air 07/16/19 14:00 91 19 135/68 (90) 92 Room Air 07/16/19 13:00 103 26 155/85 (108) 95 Room Air 07/16/19 12:24 110 07/16/19 12:11 38.2 07/16/19 12:00 Room Air 07/16/19 12:00 103 34 171/95 (120) 90 Room Air 07/16/19 11:10 92 Room Air 07/16/19 11:00 82 18 156/83 (107) 93 Room Air 07/16/19 10:00 91 24 166/92 (116) 94 Room Air 07/16/19 09:00 95 17 138/86 (103) 94 Room Air 07/16/19 08:00 Room Air 07/16/19 08:00 106 25 153/88 (109) 93 Room Air 07/16/19 07:15 95 High Flow N/C 1.00 07/16/19 07:00 96 11 93 High Flow N/C 2.00 07/16/19 07:00 121 I & O 07/17/19 07:00 Intake Total 572.5 ml Output Total 2000 ml Balance -1427.5 ml Height & Weight Height: 5'11.00" Weight: 188lbs. 0.0oz. 85.477617vv; 27.64 BMI Method: General Appearance: No Apparent Distress, Anxious, Chronically ill HEENT: PERRL/EOMI Neck: Full Range of Motion, Normal Inspection, Supple Respiratory: No Accessory Muscle Use, No Respiratory Distress, Decreased Breath Sounds, Wheezing Cardiovascular: Regular Rate, Rhythm, No Murmur Capillary Refill: Less Than 3 Seconds Gastrointestinal: normal bowel sounds, non tender, soft Extremity: Normal Capillary Refill, Normal Inspection, No Calf Tenderness, No Pedal Edema Neurologic/Psychiatric: Alert, Oriented x3 Skin: Warm/Dry, Pallor Lymphatic: No Adenopathy (neck, axilla or groin) Results Lab Laboratory Tests 07/15/19 11:10 07/16/19 03:25 07/17/19 03:35 Assessment/Plan Assessment/Plan Worsening leukocytosis and fever-- improving -Diego cultures pending -cefepime and D/C Vanco -Check MRSA and influenza swab Dyspnea -SL IVF check BNP and give 40mg of lasix -Monitor -IS -Duonebs Acute CP- probably secondary to surgery -Cardiology following -Troponin is negative -EKG S/p mediport placement Metabolic lactic acidosis and leukocytosis - probably secondary to surgery - doubt sepsis . JOYCE FREITAS DO Jul 17, 2019 06:41
[2019-07-17] MEDS ORDERED: FUROSEMIDE 40 MG/4 ML INJ (LASIX) IVP ONE (06:45)
[2019-07-17] MEDS ORDERED: POTASSIUM PHOSPHATE INJ 30 MM in NS (IVPB) 250 ML IV NR (07:20)
--- NOTE | 2019-07-17 07:21 | Diagnostic Imaging Report ---
CHEST 1 VIEW, AP/PA ONLY Indication: Dyspnea Comparison: 07/16/2019 Findings: Stable right subclavian Port-A-Cath. Left basilar heterogeneous opacities are similar. No pneumothorax or pleural effusion. Stable cardiomegaly. Mediastinal contours are unchanged. Impression: 1. Stable exam without adverse development. Dictated by: Dictated on workstation # [id number]
[2019-07-17] MEDS ORDERED: methylPREDNISolone 40 MG/ML (Solu-MEDROL) VIAL IV SCH (07:22)
[2019-07-17] MEDS ORDERED: DOCUSATE SODIUM 100 MG (COLACE) CAP PO SCH (09:00)
[2019-07-17] MEDS ORDERED: ALLOPURINOL 300 MG (ZYLOPRIM) TAB PO SCH (09:00)
[2019-07-17] MEDS ORDERED: LOSARTAN 100 MG (COZAAR) TABLET PO SCH (09:00)
[2019-07-17] MEDS ORDERED: PANTOPRAZOLE 40 MG (PROTONIX) VIAL IV SCH (09:00)
[2019-07-17] MEDS ORDERED: LORATADINE (CLARITIN) 10 MG TAB PO SCH (09:00)
[2019-07-17] MEDS ORDERED: FAMOTIDINE 20 MG (PEPCID) TABLET PO SCH (09:00)
[2019-07-17] MEDS ORDERED: FERROUS SULF 325 MG (IRON) TAB PO SCH (09:00)
[2019-07-17] MEDS ORDERED: amLODIPine 10 MG (NORVASC) TAB PO SCH (09:00)
--- NOTE | 2019-07-17 09:12 | Progress Note - Surgery ---
Subjective Time Seen by a Provider: 08:52 Subjective/Events-last exam Pt seen and examined, has no new complaints. Breathing is ok. Review of Systems General: No Chills, No Night Sweats Pulmonary: Dyspnea; No Cough Cardiovascular: Chest Pain; No: Palpitations Gastrointestinal: No: Nausea, Vomiting, Abdominal Pain Focused Exam Lactate Level 07/15/19 11:10: Lactic Acid Level 2.16*H 07/15/19 13:17: Lactic Acid Level 2.75*H Objective Exam Vital Signs Date Time Temp Pulse Resp B/P (MAP) Pulse Ox O2 Delivery O2 Flow Rate FiO2 07/17/19 08:00 75 13 147/90 (109) 95 Room Air 07/17/19 07:21 36.4 07/17/19 07:00 92 07/17/19 07:00 93 Room Air 07/17/19 06:00 73 21 160/93 (115) 93 Room Air 07/17/19 05:00 76 18 144/91 (108) 93 Room Air 07/17/19 04:00 79 16 168/98 (121) 92 Room Air 07/17/19 04:00 36.9 07/17/19 04:00 94 Room Air 07/17/19 03:00 100 33 181/94 (123) 93 Room Air 07/17/19 02:10 93 Room Air 07/17/19 02:00 81 24 168/85 (112) 93 Room Air 07/17/19 01:00 90 07/17/19 01:00 89 25 167/82 (110) 93 Room Air 07/17/19 00:00 37.3 07/17/19 00:00 94 Room Air 07/17/19 00:00 80 17 158/89 (112) 94 Room Air 07/16/19 23:00 84 24 174/100 (124) 92 Room Air 07/16/19 22:00 87 24 130/72 (91) 92 Room Air 07/16/19 21:00 94 26 170/91 (117) 94 Room Air 07/16/19 20:43 92 Room Air 07/16/19 20:00 80 24 155/76 (102) 92 Room Air 07/16/19 20:00 94 Room Air 07/16/19 19:18 36.8 07/16/19 19:00 91 23 160/104 (122) 92 Room Air 07/16/19 19:00 92 07/16/19 18:25 92 Room Air 07/16/19 18:00 88 21 154/83 (106) 93 Room Air 07/16/19 17:00 84 24 150/85 (106) 92 Room Air 07/16/19 16:00 87 15 102/71 (81) 98 Room Air 07/16/19 16:00 Room Air 07/16/19 15:33 37.1 07/16/19 15:00 81 26 150/86 (107) 94 Room Air 07/16/19 14:58 92 Room Air 07/16/19 14:00 91 19 135/68 (90) 92 Room Air 07/16/19 13:00 103 26 155/85 (108) 95 Room Air 07/16/19 12:24 110 07/16/19 12:11 38.2 07/16/19 12:00 Room Air 07/16/19 12:00 103 34 171/95 (120) 90 Room Air 07/16/19 11:10 92 Room Air 07/16/19 11:00 82 18 156/83 (107) 93 Room Air 07/16/19 10:00 91 24 166/92 (116) 94 Room Air I & O 07/17/19 07:00 Intake Total 3184.7 ml Output Total 2000 ml Balance 1184.7 ml Capillary Refill : Less Than 3 Seconds General Appearance: No Apparent Distress, Anxious HEENT: PERRL/EOMI Respiratory: No Accessory Muscle Use, No Respiratory Distress, Wheezing Cardiovascular: Regular Rate, Rhythm, No Murmur Gastrointestinal: normal bowel sounds, non tender, soft Extremity: No Calf Tenderness Neurologic/Psychiatric: Alert Skin: Warm/Dry, Pallor Results Lab Laboratory Tests 07/17/19 03:35: White Blood Count 17.9H, Red Blood Count 4.03L, Hemoglobin 10.4L, Hematocrit 32L , Mean Corpuscular Volume 79L, Mean Corpuscular Hemoglobin 26, Mean Corpuscular Hemoglobin Concent 33, Red Cell Distribution Width 19.1H, Platelet Count 230, Mean Platelet Volume 10.6H, Neutrophils (%) (Auto) 77H, Lymphocytes (%) (Auto) 4L, Monocytes (%) (Auto) 11, Eosinophils (%) (Auto) 8, Basophils (%) (Auto) 0, Neutrophils # (Auto) 13.8H, Lymphocytes # (Auto) 0.7L, Monocytes # (Auto) 1.9H, Eosinophils # (Auto) 1.3H, Basophils # (Auto) 0.1, Sodium Level 137, Potassium Level 4.1, Chloride Level 107, Carbon Dioxide Level 22, Anion Gap 8, Blood Urea Nitrogen 14, Creatinine 0.92, Estimat Glomerular Filtration Rate > 60, B UN/Creatinine Ratio 15, Glucose Level 96, Calcium Level 8.8, Phosphorus Level 1.7L, Magnesium Level 1.8, B-Type Natriuretic Peptide 122.8H Microbiology 07/16/19 Influenza Types A,B Antigen (TAMAR) - Final, Complete 07/15/19 Blood Culture - Preliminary, Resulted No growth Assessment/Plan Assessment/Plan Assessment/Plan Chest pain - improved Hypoxia - improved Elevated WBC - trending down Urinary retention GERD Pt still has some wheezing but pulse Ox is greater than 94% on room air. Plan EGD as outpt. Spoke with Cardiology and they do not believe this is cardiac issue. Pulmonology will write for some steroids and inhalers at home. Pt can follow up in one week at my clinic. Clinical Quality Measures DVT/VTE Risk/Contraindication: Risk Factor Score Per Nursin RFS Level Per Nursing on Admit: 4+=Very High DYLAN ANDERSON DO Jul 17, 2019 09:12
[2019-07-17] MEDS: meTOproloL SUCCINATE 50 MG (TOPROL XL) TAB PO SCH (09:32)
[2019-07-17] MEDS: ANTACID SUSP 30 ML UDC (MYLANTA) PO SCH (09:33)
[2019-07-17] MEDS ORDERED: PRD10T PO (10:04)
[2019-07-17] MEDS ORDERED: CEFD300C3 PO (10:04)
--- NOTE | 2019-07-17 10:47 | Progress Note - Cardiology ---
Cardiology SOAP Progress Note Subjective: No recurrence of chest discomfort No palp or syncope No n/v/d No focal weakness Objective: I&O/Vital Signs 07/16/19 07/17/19 07/17/19 07/17/19 23:00 00:00 00:00 00:00 Temp 37.3 Pulse 84 80 Resp 24 17 B/P (MAP) 174/100 (124) 158/89 (112) Pulse Ox 92 94 94 O2 Delivery Room Air Room Air Room Air 07/17/19 07/17/19 07/17/19 07/17/19 01:00 01:00 02:00 02:10 Pulse 89 90 81 Resp 25 24 B/P (MAP) 167/82 (110) 168/85 (112) Pulse Ox 93 93 93 O2 Delivery Room Air Room Air Room Air 07/17/19 07/17/19 07/17/19 07/17/19 03:00 04:00 04:00 04:00 Temp 36.9 Pulse 100 79 Resp 33 16 B/P (MAP) 181/94 (123) 168/98 (121) Pulse Ox 93 94 92 O2 Delivery Room Air Room Air Room Air 07/17/19 07/17/19 07/17/19 07/17/19 05:00 06:00 07:00 07:00 Pulse 76 73 92 Resp 18 21 B/P (MAP) 144/91 (108) 160/93 (115) Pulse Ox 93 93 93 O2 Delivery Room Air Room Air Room Air 07/17/19 07/17/19 07/17/19 07:21 08:00 10:07 Temp 36.4 Pulse 75 Resp 13 B/P (MAP) 147/90 (109) Pulse Ox 95 93 O2 Delivery Room Air Room Air 07/17/19 00:00 Intake Total 572.5 ml Output Total 2000 ml Balance -1427.5 ml Weight (Pounds): 188 Weight (Ounces): 0.0 Weight (Calculated Kilograms): 85.807343 Constitutional: AAO x 3, well-developed, well-nourished Respiratory: No accessory muscle use, No respiratory distress; chest expansion is symmetric, chest is bilaterally symmetric, rhonchi (scattered), other (coarse lung sounds) Cardiovascular: regular rate-rhythm; No JVD; S1 and S2 Gastrointestional: distended, audible bowel sounds (hyperactive), other (e pigastric tenderness) Extremities: no lower extremity edema bilateral Neurologic/Psychiatric: grossly intact (moves all extremities) Skin: No rash on exposed areas, No ulcerations on exposed areas; other (R ACW incision sites x2 without redness, swelling or bruising) Results/Procedures: Labs Laboratory Tests 07/17/19 03:35: White Blood Count 17.9H, Red Blood Count 4.03L, Hemoglobin 10.4L, Hematocrit 32L , Mean Corpuscular Volume 79L, Mean Corpuscular Hemoglobin 26, Mean Corpuscular Hemoglobin Concent 33, Red Cell Distribution Width 19.1H, Platelet Count 230, Mean Platelet Volume 10.6H, Neutrophils (%) (Auto) 77H, Lymphocytes (%) (Auto) 4L, Monocytes (%) (Auto) 11, Eosinophils (%) (Auto) 8, Basophils (%) (Auto) 0, Neutrophils # (Auto) 13.8H, Lymphocytes # (Auto) 0.7L, Monocytes # (Auto) 1.9H, Eosinophils # (Auto) 1.3H, Basophils # (Auto) 0.1, Sodium Level 137, Potassium Level 4.1, Chloride Level 107, Carbon Dioxide Level 22, Anion Gap 8, Blood Urea Nitrogen 14, Creatinine 0.92, Estimat Glomerular Filtration Rate > 60, BUN/Creatinine Ratio 15, Glucose Level 96, Calcium Level 8.8, Phosphorus Level 1.7L, Magnesium Level 1.8, B-Type Natriuretic Peptide 122.8H Microbiology 07/16/19 Influenza Types A,B Antigen (TAMAR) - Final, Complete 07/15/19 Blood Culture - Preliminary, Resulted No growth Laboratory Tests 07/15/19 11:10 07/16/19 03:25 07/17/19 03:35 A/P: Assessment: Chest discomfort after port placement, no evidence of ac coronary syndrome Pneumonia - Pulmonary services managing MPI of October 2018 showed no evidence of ischemia or infarction Echo of 07/16/2019 showed LVEF 50-55%; grade 2 diastolic dysfunction; mild to mod TR; RVSP approx 23mmHg HTN Recently diagnosed with lymphoma GERD H/H seen on CT of the chest of 07-15-2019 Plan: Cardiac status appears clinically stable. We have advised close outpt f/u I again discussed his case with HUMBERTO Aviles am, MD FACP FACC CCDS Jul 17, 2019 10:47
[2019-07-17] MEDS ORDERED: TROUGH ORDER-PHARMACY XX NR (17:00)
[2019-07-17] MEDS ORDERED: TAMSULOSIN 0.4 MG (FLOMAX) CAP PO SCH (18:00)
== END 2019-07-17 10:30 | disposition home or self-care (01) ==
LOC: SDC 06:53 → ICU 09:23
PROVIDERS: ADMIT Surgery; ATTEND Surgery
DX: I87.2 Venous insufficiency (chronic) (peripheral) (principal); C85.90 Non-Hodgkin lymphoma, unspecified, unspecified site; C83.10 Mantle cell lymphoma, unspecified site; K59.09 Other constipation; G89.29 Other chronic pain; M54.9 Dorsalgia, unspecified; D72.829 Elevated white blood cell count, unspecified; R07.9 Chest pain, unspecified; R09.02 Hypoxemia; G43.909 Migraine, unspecified, not intractable, without status migrainosus; K21.9 Gastro-esophageal reflux disease without esophagitis; I10 Essential (primary) hypertension; J45.909 Unspecified asthma, uncomplicated; M19.90 Unspecified osteoarthritis, unspecified site; Z85.820 Personal history of malignant melanoma of skin; Z88.0 Allergy status to penicillin; Z88.8 Allergy status to other drugs, medicaments and biological substances; Z79.899 Other long term (current) drug therapy; Z79.891 Long term (current) use of opiate analgesic; Z83.3 Family history of diabetes mellitus
CPT/HCPCS: 36415; 71045; 71275; 80048; 80053; 81000; 82805; 83605; 83735; 83880; 84100; 84484; 85007; 85025; 85027; 87040; 87081; 87804; 93005; 93306; 94640; 94664; G0378

== ENCOUNTER 2019-07-24 12:39 | Outpatient (RCR) | payer OTHER ==
[2019-05-21 09:48] LABS: BASOPHILS # (AUTO) 0.2 10^3/uL (0.0-0.1); BASOPHILS % (AUTO) 2 % (0-10); EOSINOPHILS # (AUTO) 0.4 10^3/uL (0.0-0.3); EOSINOPHILS % (AUTO) 4 % (0-10); HEMATOCRIT 38 % (40-54); HEMOGLOBIN 12.1 G/DL (13.3-17.7); LYMPHOCYTES # (AUTO) 1.5 X 10^3 (1.0-4.0); LYMPHOCYTES % (AUTO) 16 % (12-44); MEAN CORPUSCULAR HEMOGLOBIN 25 PG (25-34); MEAN CORPUSCULAR HGB CONC 32 G/DL (32-36); MEAN CORPUSCULAR VOLUME 79 FL (80-99); MEAN PLATELET VOLUME 9.7 FL (7.4-10.4); MONOCYTES # (AUTO) 1.3 X 10^3 (0.0-1.0); MONOCYTES % (AUTO) 14 % (0-12); NEUTROPHILS % (AUTO) 64 % (42-75); PLATELET COUNT 442 10^3/uL (130-400); RED CELL DISTRIBUTION WIDTH 16.7 % (10.0-14.5); WHITE BLOOD COUNT 9.4 10^3/uL (4.3-11.0)
[2019-05-21 10:10] LABS: ALANINE AMINOTRANSFERASE 11 U/L (0-55); ALBUMIN 4.1 GM/DL (3.2-4.5); ALKALINE PHOSPHATASE 68 U/L (40-136); BILIRUBIN,TOTAL 0.3 MG/DL (0.1-1.0); BUN/CREATININE RATIO 28; CALCIUM 9.4 MG/DL (8.5-10.1); CARBON DIOXIDE 23 MMOL/L (21-32); CHLORIDE 108 MMOL/L (98-107); CREATININE SERUM 0.97 MG/DL (0.60-1.30); GFR ESTIMATED > 60; GLUCOSE 96 MG/DL (70-105); POTASSIUM 4.6 MMOL/L (3.6-5.0); SODIUM 142 MMOL/L (135-145); TOTAL PROTEIN 6.9 GM/DL (6.4-8.2); URIC ACID 3.6 MG/DL (2.6-7.2)
[2019-05-21 21:47] LABS: HEPATITIS C ANTIBODY C Non-Reactive (Non-Reactive)
[2019-05-28 10:41] LABS: ABSOLUTE RETIC # 46 10e9/L (24-90); BASOPHILS # (AUTO) 0.1 10^3/uL (0.0-0.1); BASOPHILS % (AUTO) 2 % (0-10); EOSINOPHILS # (AUTO) 0.4 10^3/uL (0.0-0.3); EOSINOPHILS % (AUTO) 5 % (0-10); HEMATOCRIT 37 % (40-54); HEMOGLOBIN 11.8 G/DL (13.3-17.7); LYMPHOCYTES # (AUTO) 1.5 X 10^3 (1.0-4.0); LYMPHOCYTES % (AUTO) 20 % (12-44); MEAN CORPUSCULAR HEMOGLOBIN 25 PG (25-34); MEAN CORPUSCULAR HGB CONC 32 G/DL (32-36); MEAN CORPUSCULAR VOLUME 78 FL (80-99); MONOCYTES # (AUTO) 1.3 X 10^3 (0.0-1.0); MONOCYTES % (AUTO) 16 % (0-12); NEUTROPHILS # (AUTO) 4.5 X 10^3 (1.8-7.8); NEUTROPHILS % (AUTO) 58 % (42-75); PLATELET COUNT 458 10^3/uL (130-400); RED CELL DISTRIBUTION WIDTH 16.1 % (10.0-14.5); RETICULOCYTE % 0.97 % (0.50-2.40); WHITE BLOOD COUNT 7.8 10^3/uL (4.3-11.0)
[2019-05-28 11:21] LABS: BASOPHILS % (MANUAL) 2 %; EOSINOPHILS % (MANUAL) 7 %; LYMPHOCYTES % (MANUAL) 25 %; MONOCYTES % (MANUAL) 16 %; NEUTROPHILS % (MANUAL) 50 %
[2019-05-28 11:22] LABS: ANISOCYTOSIS SLIGHT; ELLIPT/OVALOCYTES SLIGHT; HYPOCHROMASIA SLIGHT; MICROCYTOSIS SLIGHT; POIKILOCYTOSIS SLIGHT; POLYCHROMASIA SLIGHT; TARGET CELLS SLIGHT
[2019-05-28 11:23] LABS: HOWELL-JOLLY BODIES SLIGHT
[2019-06-25 08:48] LABS: BASOPHILS # (AUTO) 0.2 10^3/uL (0.0-0.1); BASOPHILS % (AUTO) 2 % (0-10); EOSINOPHILS # (AUTO) 0.4 10^3/uL (0.0-0.3); EOSINOPHILS % (AUTO) 4 % (0-10); HEMATOCRIT 37 % (40-54); LYMPHOCYTES # (AUTO) 1.9 X 10^3 (1.0-4.0); LYMPHOCYTES % (AUTO) 21 % (12-44); MEAN CORPUSCULAR HEMOGLOBIN 25 PG (25-34); MEAN CORPUSCULAR HGB CONC 32 G/DL (32-36); MEAN CORPUSCULAR VOLUME 77 FL (80-99); MEAN PLATELET VOLUME 9.8 FL (7.4-10.4); MONOCYTES # (AUTO) 1.2 X 10^3 (0.0-1.0); MONOCYTES % (AUTO) 14 % (0-12); NEUTROPHILS # (AUTO) 5.2 X 10^3 (1.8-7.8); NEUTROPHILS % (AUTO) 59 % (42-75); PLATELET COUNT 465 10^3/uL (130-400); WHITE BLOOD COUNT 8.8 10^3/uL (4.3-11.0)
[2019-06-25 09:06] LABS: ALANINE AMINOTRANSFERASE 9 U/L (0-55); ALBUMIN 4.1 GM/DL (3.2-4.5); ALKALINE PHOSPHATASE 67 U/L (40-136); BILIRUBIN,TOTAL 0.3 MG/DL (0.1-1.0); BUN/CREATININE RATIO 25; CALCIUM 9.5 MG/DL (8.5-10.1); CARBON DIOXIDE 24 MMOL/L (21-32); CHLORIDE 108 MMOL/L (98-107); CREATININE SERUM 1.12 MG/DL (0.60-1.30); GFR ESTIMATED > 60; GLUCOSE 101 MG/DL (70-105); POTASSIUM 4.3 MMOL/L (3.6-5.0); SODIUM 142 MMOL/L (135-145); TOTAL PROTEIN 6.9 GM/DL (6.4-8.2)
[2019-07-23 10:20] LABS: BASOPHILS % (AUTO) 0 % (0-10); EOSINOPHILS % (AUTO) 0 % (0-10); HEMATOCRIT 37 % (40-54); HEMOGLOBIN 12.2 G/DL (13.3-17.7); LYMPHOCYTES # (AUTO) 0.5 X 10^3 (1.0-4.0); LYMPHOCYTES % (AUTO) 3 % (12-44); MEAN CORPUSCULAR HEMOGLOBIN 26 PG (25-34); MEAN CORPUSCULAR HGB CONC 33 G/DL (32-36); MEAN CORPUSCULAR VOLUME 78 FL (80-99); MEAN PLATELET VOLUME 10.4 FL (7.4-10.4); MONOCYTES % (AUTO) 7 % (0-12); NEUTROPHILS # (AUTO) 14.3 X 10^3 (1.8-7.8); NEUTROPHILS % (AUTO) 90 % (42-75); PLATELET COUNT 342 10^3/uL (130-400); RED CELL DISTRIBUTION WIDTH 19.3 % (10.0-14.5); WHITE BLOOD COUNT 15.9 10^3/uL (4.3-11.0)
[2019-07-23 10:38] LABS: ALANINE AMINOTRANSFERASE 30 U/L (0-55); ALBUMIN 3.9 GM/DL (3.2-4.5); ALKALINE PHOSPHATASE 64 U/L (40-136); BILIRUBIN,TOTAL 0.3 MG/DL (0.1-1.0); BUN/CREATININE RATIO 20; CALCIUM 9.7 MG/DL (8.5-10.1); CARBON DIOXIDE 24 MMOL/L (21-32); CHLORIDE 104 MMOL/L (98-107); CREATININE SERUM 1.01 MG/DL (0.60-1.30); GFR ESTIMATED > 60; GLUCOSE 137 MG/DL (70-105); POTASSIUM 3.9 MMOL/L (3.6-5.0); SODIUM 138 MMOL/L (135-145); TOTAL PROTEIN 6.6 GM/DL (6.4-8.2)
[~2019-07-24] VITALS: Ht 177.8 cm; Wt 83.9 kg
[~2019-07-24 12:39] MED LIST changes: +ACETAMINOPHEN 325 MG TAB (TYLENOL) CANCER CTR PO PRN; +BENDAMUSTINE HCL 180 MG in NS (IVPB) CANCER CENTER 50 ML IV SCH; +CEFD300C3 PO; +LIDOCAINE 1% 20 ML (XYLOCAINE) VIAL CANCER CTR ONE; +NS IV 1000 ML (CANCER CTR) IV SCH; +ONDANSETRON MDV (CANCER CENTER 16 MG, DEXAMETHASONE INJECTION 10 MG in NS (IVPB) CANCER... IV SCH; +PALONOSETRON HCL 0.25 MG, DEXAMETHASONE INJECTION 10 MG in NS (IVPB) CANCER CENTER 50 ML IV SCH; +PRD10T PO; +diphenhydrAMINE 25 MG TAB (BENADRYL) CANCER CENTER PO ONE; +diphenhydrAMINE 25 MG TAB (BENADRYL) CANCER CENTER PO SCH; +diphenhydrAMINE 50 MG/ML INJ (CANCER CENTER) IV PRN; +diphenhydrAMINE 50 MG/ML INJ (CANCER CENTER) ONE; +riTUXimab 500 MG, riTUXimab FOR IV INJ CONC 200 MG in NS (IVPB) CANCER CENTER ONLY 150 ML IV SCH
== END 2019-08-19 | disposition home or self-care (01) ==
LOC: ONC 12:39
PROVIDERS: ATTEND Internal Medicine Hematology & Oncology
DX: C83.18 Mantle cell lymphoma, lymph nodes of multiple sites (principal); I10 Essential (primary) hypertension; J45.909 Unspecified asthma, uncomplicated; E78.00 Pure hypercholesterolemia, unspecified; Z80.9 Family history of malignant neoplasm, unspecified; Z98.890 Other specified postprocedural states; Z90.81 Acquired absence of spleen; Z98.1 Arthrodesis status
CPT/HCPCS: 36415; 36591; 38221; 80053; 80074; 82232; 83615; 84155; 84165; 84550; 85007; 85025; 85045; 88184; 88185; 88305; 88311; 88313; 88341; 88342; 96375; 96409; 96411; 96413; 96415; 99213; 99214; J9312

== ENCOUNTER 2019-08-21 09:48 | Outpatient (RCR) | payer OTHER ==
[2019-08-20 10:14] LABS: BASOPHILS % (AUTO) 0 % (0-10); EOSINOPHILS % (AUTO) 0 % (0-10); HEMATOCRIT 40 % (40-54); LYMPHOCYTES # (AUTO) 0.9 X 10^3 (1.0-4.0); LYMPHOCYTES % (AUTO) 7 % (12-44); MEAN CORPUSCULAR HEMOGLOBIN 26 PG (25-34); MEAN CORPUSCULAR HGB CONC 33 G/DL (32-36); MEAN CORPUSCULAR VOLUME 80 FL (80-99); MEAN PLATELET VOLUME 9.5 FL (7.4-10.4); MONOCYTES # (AUTO) 1.4 X 10^3 (0.0-1.0); MONOCYTES % (AUTO) 10 % (0-12); NEUTROPHILS # (AUTO) 11.2 X 10^3 (1.8-7.8); NEUTROPHILS % (AUTO) 83 % (42-75); PLATELET COUNT 471 10^3/uL (130-400); RED CELL DISTRIBUTION WIDTH 21.2 % (10.0-14.5); WHITE BLOOD COUNT 13.6 10^3/uL (4.3-11.0)
[2019-08-20 10:46] LABS: ALANINE AMINOTRANSFERASE 13 U/L (0-55); ALBUMIN 4.1 GM/DL (3.2-4.5); ALKALINE PHOSPHATASE 62 U/L (40-136); BILIRUBIN,TOTAL 0.2 MG/DL (0.1-1.0); BUN/CREATININE RATIO 32; CALCIUM 10.1 MG/DL (8.5-10.1); CARBON DIOXIDE 23 MMOL/L (21-32); CHLORIDE 105 MMOL/L (98-107); CREATININE SERUM 0.99 MG/DL (0.60-1.30); GFR ESTIMATED > 60; GLUCOSE 123 MG/DL (70-105); SODIUM 140 MMOL/L (135-145); TOTAL PROTEIN 6.9 GM/DL (6.4-8.2)
[~2019-08-21 09:48] MED LIST changes: -LIDOCAINE 1% 20 ML (XYLOCAINE) VIAL CANCER CTR ONE; -diphenhydrAMINE 25 MG TAB (BENADRYL) CANCER CENTER PO SCH; -diphenhydrAMINE 50 MG/ML INJ (CANCER CENTER) ONE
== END 2019-09-16 11:22 | disposition home or self-care (01) ==
LOC: ONC 09:48
PROVIDERS: ATTEND Internal Medicine Hematology & Oncology
DX: Z51.81 Encounter for therapeutic drug level monitoring (principal); C83.18 Mantle cell lymphoma, lymph nodes of multiple sites; I10 Essential (primary) hypertension; J45.909 Unspecified asthma, uncomplicated; E78.00 Pure hypercholesterolemia, unspecified; E78.5 Hyperlipidemia, unspecified; E61.1 Iron deficiency; R51 Headache; Z98.1 Arthrodesis status; Z80.9 Family history of malignant neoplasm, unspecified; Z98.890 Other specified postprocedural states; Z90.81 Acquired absence of spleen
CPT/HCPCS: 36591; 80053; 85025; 96375; 96409; 96411; 96413; J9312

== ENCOUNTER 2019-11-13 11:09 | Outpatient (RCR) | payer OTHER ==
[2019-09-17 13:04] LABS: BASOPHILS # (AUTO) 0.1 10^3/uL (0.0-0.1); BASOPHILS % (AUTO) 1 % (0-10); EOSINOPHILS # (AUTO) 0.4 10^3/uL (0.0-0.3); EOSINOPHILS % (AUTO) 5 % (0-10); HEMATOCRIT 39 % (40-54); HEMOGLOBIN 13.1 G/DL (13.3-17.7); LYMPHOCYTES % (AUTO) 12 % (12-44); MEAN CORPUSCULAR HEMOGLOBIN 28 PG (25-34); MEAN CORPUSCULAR HGB CONC 33 G/DL (32-36); MEAN CORPUSCULAR VOLUME 85 FL (80-99); MONOCYTES % (AUTO) 12 % (0-12); NEUTROPHILS # (AUTO) 5.9 X 10^3 (1.8-7.8); NEUTROPHILS % (AUTO) 70 % (42-75); PLATELET COUNT 228 10^3/uL (130-400); RED CELL DISTRIBUTION WIDTH 20.7 % (10.0-14.5); WHITE BLOOD COUNT 8.4 10^3/uL (4.3-11.0)
[2019-09-17 13:25] LABS: ALANINE AMINOTRANSFERASE 16 U/L (0-55); ALBUMIN 3.9 GM/DL (3.2-4.5); ALKALINE PHOSPHATASE 59 U/L (40-136); BILIRUBIN,TOTAL 0.2 MG/DL (0.1-1.0); BUN/CREATININE RATIO 20; CALCIUM 9.1 MG/DL (8.5-10.1); CARBON DIOXIDE 24 MMOL/L (21-32); CHLORIDE 109 MMOL/L (98-107); CREATININE SERUM 0.88 MG/DL (0.60-1.30); GFR ESTIMATED > 60; GLUCOSE 101 MG/DL (70-105); POTASSIUM 4.2 MMOL/L (3.6-5.0); SODIUM 141 MMOL/L (135-145); TOTAL PROTEIN 6.6 GM/DL (6.4-8.2)
[2019-10-15 11:07] LABS: BASOPHILS # (AUTO) 0.1 10^3/uL (0.0-0.1); BASOPHILS % (AUTO) 1 % (0-10); EOSINOPHILS # (AUTO) 0.6 10^3/uL (0.0-0.3); EOSINOPHILS % (AUTO) 8 % (0-10); HEMATOCRIT 42 % (40-54); HEMOGLOBIN 14.2 G/DL (13.3-17.7); LYMPHOCYTES # (AUTO) 1.1 X 10^3 (1.0-4.0); LYMPHOCYTES % (AUTO) 14 % (12-44); MEAN CORPUSCULAR HEMOGLOBIN 29 PG (25-34); MEAN CORPUSCULAR HGB CONC 34 G/DL (32-36); MEAN CORPUSCULAR VOLUME 88 FL (80-99); MEAN PLATELET VOLUME 10.2 FL (7.4-10.4); MONOCYTES # (AUTO) 1.3 X 10^3 (0.0-1.0); MONOCYTES % (AUTO) 17 % (0-12); NEUTROPHILS # (AUTO) 4.7 X 10^3 (1.8-7.8); NEUTROPHILS % (AUTO) 60 % (42-75); PLATELET COUNT 295 10^3/uL (130-400); RED CELL DISTRIBUTION WIDTH 19.6 % (10.0-14.5); WHITE BLOOD COUNT 7.8 10^3/uL (4.3-11.0)
[2019-10-15 11:39] LABS: ALANINE AMINOTRANSFERASE 14 U/L (0-55); ALBUMIN 3.9 GM/DL (3.2-4.5); ALKALINE PHOSPHATASE 69 U/L (40-136); BILIRUBIN,TOTAL 0.2 MG/DL (0.1-1.0); BUN/CREATININE RATIO 17; CALCIUM 10.2 MG/DL (8.5-10.1); CARBON DIOXIDE 28 MMOL/L (21-32); CHLORIDE 106 MMOL/L (98-107); CREATININE SERUM 1.12 MG/DL (0.60-1.30); GFR ESTIMATED > 60; GLUCOSE 130 MG/DL (70-105); SODIUM 141 MMOL/L (135-145); TOTAL PROTEIN 6.8 GM/DL (6.4-8.2)
[2019-11-12 09:49] LABS: BASOPHILS # (AUTO) 0.1 10^3/uL (0.0-0.1); BASOPHILS % (AUTO) 2 % (0-10); EOSINOPHILS # (AUTO) 0.5 10^3/uL (0.0-0.3); EOSINOPHILS % (AUTO) 8 % (0-10); HEMATOCRIT 42 % (40-54); HEMOGLOBIN 14.3 G/DL (13.3-17.7); LYMPHOCYTES % (AUTO) 16 % (12-44); MEAN CORPUSCULAR HEMOGLOBIN 31 PG (25-34); MEAN CORPUSCULAR HGB CONC 34 G/DL (32-36); MEAN CORPUSCULAR VOLUME 90 FL (80-99); MEAN PLATELET VOLUME 10.4 FL (7.4-10.4); MONOCYTES # (AUTO) 1.1 X 10^3 (0.0-1.0); MONOCYTES % (AUTO) 18 % (0-12); NEUTROPHILS # (AUTO) 3.4 X 10^3 (1.8-7.8); NEUTROPHILS % (AUTO) 56 % (42-75); PLATELET COUNT 241 10^3/uL (130-400); RED CELL DISTRIBUTION WIDTH 17.6 % (10.0-14.5); WHITE BLOOD COUNT 6.1 10^3/uL (4.3-11.0)
[2019-11-12 10:07] LABS: ALANINE AMINOTRANSFERASE 13 U/L (0-55); ALBUMIN 3.9 GM/DL (3.2-4.5); ALKALINE PHOSPHATASE 58 U/L (40-136); BILIRUBIN,TOTAL 0.3 MG/DL (0.1-1.0); BUN/CREATININE RATIO 19; CALCIUM 9.6 MG/DL (8.5-10.1); CARBON DIOXIDE 20 MMOL/L (21-32); CHLORIDE 108 MMOL/L (98-107); CREATININE SERUM 1.09 MG/DL (0.60-1.30); GFR ESTIMATED > 60; GLUCOSE 118 MG/DL (70-105); POTASSIUM 4.1 MMOL/L (3.6-5.0); SODIUM 141 MMOL/L (135-145); TOTAL PROTEIN 6.5 GM/DL (6.4-8.2)
== END 2019-12-16 | disposition home or self-care (01) ==
LOC: ONC 11:09
PROVIDERS: ATTEND Internal Medicine Hematology & Oncology
DX: Z51.11 Encounter for antineoplastic chemotherapy (principal); C83.18 Mantle cell lymphoma, lymph nodes of multiple sites; I10 Essential (primary) hypertension; J45.909 Unspecified asthma, uncomplicated; E78.00 Pure hypercholesterolemia, unspecified; E78.5 Hyperlipidemia, unspecified; E61.1 Iron deficiency; R51 Headache; R91.8 Other nonspecific abnormal finding of lung field; Z98.1 Arthrodesis status; Z80.9 Family history of malignant neoplasm, unspecified; Z98.890 Other specified postprocedural states; Z90.81 Acquired absence of spleen
CPT/HCPCS: 80053; 85025; 96375; 96411; 96413; G0463; 36591; 96409; J9312

== ENCOUNTER → 2019-12-01 | Outpatient (CLI) | payer MEDICARE, OTHER ==
[~2019-12-01] MED LIST changes: -ACETAMINOPHEN 325 MG TAB (TYLENOL) CANCER CTR PO PRN; -BENDAMUSTINE HCL 180 MG in NS (IVPB) CANCER CENTER 50 ML IV SCH; -NS IV 1000 ML (CANCER CTR) IV SCH; -ONDANSETRON MDV (CANCER CENTER 16 MG, DEXAMETHASONE INJECTION 10 MG in NS (IVPB) CANCER... IV SCH; -PALONOSETRON HCL 0.25 MG, DEXAMETHASONE INJECTION 10 MG in NS (IVPB) CANCER CENTER 50 ML IV SCH; -diphenhydrAMINE 25 MG TAB (BENADRYL) CANCER CENTER PO ONE; -diphenhydrAMINE 50 MG/ML INJ (CANCER CENTER) IV PRN; -riTUXimab 500 MG, riTUXimab FOR IV INJ CONC 200 MG in NS (IVPB) CANCER CENTER ONLY 150 ML IV SCH
--- NOTE | 2019-12-01 13:38 | Diagnostic Imaging Report ---
INDICATION: Mantle cell lymphoma. This study is performed for restaging and to evaluate treatment response. TECHNIQUE: The serum blood glucose level at the time of injection is 100 mg/dL. The patient was administered 14.6 mCi of F-18 FDG intravenously in the left forearm and PET imaging was performed from the top of the skull to the mid thighs. A noncontrast CT was also performed for attenuation correction and anatomic correlation. COMPARISON: Correlation is made with the prior PET/CT study from 05/05/[address] chest study from 07/15/2019. FINDINGS: An area of photopenia in the right parietal-occipital portion of the brain appears to be symmetric when compared with the prior exam. There has been a significant response to therapy. The prominent hypermetabolic nodes in the cervical and supraclavicular region have resolved. The bilateral axillary hypermetabolic lymphadenopathy has resolved. The enlarged and hypermetabolic lymph nodes in the central retroperitoneum, iliac, obturator, and bilateral inguinal regions have resolved. No suspicious hypermetabolism is identified on today's exam. Physiologic activity in the GI and tracts is seen. IMPRESSION: Significant response to therapy since the prior PET/CT study from 05/05/2019. No hypermetabolic lymphadenopathy is detected on today's exam. Dictated by: Dictated on workstation # [id number]
== END ==
LOC: RAD 08:35
PROVIDERS: ATTEND Internal Medicine Hematology & Oncology
DX: C83.18 Mantle cell lymphoma, lymph nodes of multiple sites (principal)
CPT/HCPCS: 78815; A9552